=== PATIENT | male | born 1965 | race Caucasian/White ===

== ENCOUNTER 2019-08-20 17:01 | Inpatient (IN) | payer BC, OTHER ==
[~2019-08-20 17:01] MED LIST: PROPOFOL 200 MG/20 ML VIAL ONE; Succinylcholine Chloride 20 MG/ML 10 ml SYRINGE FS ONE
[2019-08-20] MEDS ORDERED: Succinylcholine Chloride 20 MG/ML 10 ml SYRINGE FS ONE (17:10)
[2019-08-20 17:37] LABS: #Lymphocytes 1.1 thou/uL (1.20-3.40); #Monocytes 0.4 thou/uL (0.11-0.59); #Neutrophils 10.1 thou/uL (1.40-6.50); %Basophils 0.4 % (0.0-1.0); %Eosinophils 0.1 % (0.0-10.0); %Lymphocytes 9.9 % (21.0-51.0); %Monocytes 3.1 % (0.0-10.0); %Neutrophils 86.5 % (42.0-75.0); Hemoglobin 16.2 g/dL (14.0-18.0); Mean Corpuscular HGB CONC 32.6 g/dL (32.0-36.0); Mean Corpuscular Hemoglobin 28.7 pg (27.0-31.0); Mean Corpuscular Volume 88.1 fL (78.0-98.0); Mean Platelet Volume 7.8 fL (7.4-10.4); Platelet Count 258 thou/uL (130-400); RBC Distribution Width 12.3 % (11.5-14.5); Red Blood Cell (RBC) Count 5.63 mill/uL (4.70-6.10); White Blood Cell (WBC) Count 11.6 thou/uL (4.8-10.8)
--- NOTE | 2019-08-20 17:56 | RAD ---
Chest one view HISTORY: Dyspnea. COVID-19. COMPARISON: 11/18/2010. FINDINGS: Cardiac silhouette is magnified and enlarged. Pulmonary vasculature is engorged. Prominent, ill-defined patchy areas of parenchymal infiltrate are scattered throughout each lung, pre dominantly at the periphery. Mediastinum is midline. No evidence of pneumothorax. site monitor leads overlie the chest. IMPRESSION : Multifocal infiltrates, consistent with severe bilateral pneumonitis. Cardiomegaly.
[2019-08-20 18:01] LABS: ALT (SGPT) 32 U/L (8-55); AST (SGOT) 43 U/L (5-34); Albumin 3.8 g/dL (3.5-5.0); Alkaline Phosphatase 78 U/L (40-110); Anion Gap 19 mmol/L (10-20); BUN (Urea Nitrogen) 21 mg/dL (8.4-25.7); Bilirubin, Total 1.1 mg/dL (0.2-1.2); Calc. Creatinine Clearance 0 mL/min (70-130); Calcium 9.3 mg/dL (7.8-10.44); Carbon Dioxide 25 mmol/L (22-29); Chloride 92 mmol/L (98-107); Estimated GFR-MDRD 55; Globulin 4.1 g/dL (2.4-3.5); Glucose 116 mg/dL (70-105); Protein, Total 7.9 g/dL (6.0-8.3); Sodium 133 mmol/L (136-145)
[2019-08-20] MEDS ORDERED: Azithromycin 500 MG VIAL ONE ×2 (18:03→18:49)
[2019-08-20] MEDS ORDERED: cefTRIAXone\\ROCEPHIN 2 GM VIAL ONE (18:03)
[2019-08-20] MEDS ORDERED: Potassium Chloride 40 MEQ in Sodium Chloride 0.9% 250 ML 250 ML IVPB SCH (18:30)
--- NOTE | 2019-08-20 18:41 | PDOC.FPRHP ---
- History of Present Illness Chief Complaint: SOB History of Present Illness: Mr Skaggs is a previously healthy 54yo male who presents with SOB. He found out he was COVID positive today, had testing preformed at [facility]. Symptoms started 08/15/19. His mother in law was confirmed COVID-19 positive and recently of complications. His had been exposed prior to positive testing. Febrile at home with Tmax of 101.3. Denies cough, sore throat, diarrhea, chest pain, myalgias. Initially hypoxic at 64% on RA with RR in 40s, HR 120s. SpO2 improved with 6L NC, he is currently 93% on 4L. ED Course: 1L NS, Azithromycin 500mg IV, Hydroxychloroquine 200mg IV, KCl 40mEq IV, Mg 2g. - Allergies/Adverse Reactions Allergies Allergy/AdvReac Type Severity Reaction Status Date / Time No Known Allergies Allergy Unverified 08/20/19 18:18 - History PMHx: Denies PSHx: Appendectomy FHx: Mother in law recently with COVID 19. Social: Denies alcohol, tobacco, drug use. - Review of Systems General: reports: fever/chills ENT: denies: nasal congestion, rhinorrhea Respiratory: reports: shortness of breath. denies: cough, congestion Cardiovascular: denies: chest pain Gastrointestinal: denies: nausea, diarrhea, abdominal pain Genitourinary: denies: dysuria, polyuria Skin: denies: rashes, lesions Musculoskeletal: denies: pain Neurological: denies: weakness - Vital signs BP: 128/92 HR: 113 RR: 44 Tmax: 98.6 Pox: 93% on 4L Wt: 160.8kg - Physical Exam Constitutional: awake, alert and oriented, well developed HEENT: normocephalic and atraumatic, conjunctiva clear, grossly normal hearing, MMM Neck: supple, trachea midline Heart: RRR, no edema, other (tachycardic. No murmurs) Lungs: other (bibasilar crackles L>R Able to speak in 2-3 word sentences. Respiratory distress with speaking, improved when relaxed.) Abdomen: soft, non-tender Musculoskeletal: normal tone Neurological: no focal deficit Skin: good turgor, other (possible tinea on b/l feet) Heme/Lymphatic: no unusual bruising or bleeding Psychiatric: normal mood and affect, good judgment and insight, intact recent and remote memory FMR H&P: Results - Labs Result Diagrams: 08/20/19 17:24 08/20/19 17:24 Lab results: WBC 11.6 thou/uL (4.8-10.8) H 08/20/19 17:24 Hgb 16.2 g/dL (14.0-18.0) 08/20/19 17:24 Hct 49.6 % (42.0-52.0) 08/20/19 17:24 MCV 88.1 fL (78.0-98.0) 08/20/19 17:24 Plt Count 258 thou/uL (130-400) 08/20/19 17:24 Neutrophils % 86.5 % (42.0-75.0) H 08/20/19 17:24 Sodium 133 mmol/L (136-145) L 08/20/19 17:24 Potassium 3.0 mmol/L (3.5-5.1) L 08/20/19 17:24 Chloride 92 mmol/L (98-107) L 08/20/19 17:24 Carbon Dioxide 25 mmol/L (22-29) 08/20/19 17:24 BUN 21 mg/dL (8.4-25.7) 08/20/19 17:24 Creatinine 1.36 mg/dL (0.7-1.3) H 08/20/19 17:24 Glucose 116 mg/dL (70-105) H 08/20/19 17:24 Lactic Acid 3.8 mmol/L (0.5-2.2) H 08/20/19 17:24 Calcium 9.3 mg/dL (7.8-10.44) 08/20/19 17:24 Total Bilirubin 1.1 mg/dL (0.2-1.2) 08/20/19 17:24 AST 43 U/L (5-34) H 08/20/19 17:24 ALT 32 U/L (8-55) 08/20/19 17:24 Alkaline Phosphatase 78 U/L (40-110) 08/20/19 17:24 Serum Total Protein 7.9 g/dL (6.0-8.3) 08/20/19 17:24 Albumin 3.8 g/dL (3.5-5.0) 08/20/19 17:24 - EKG Interpretation EKG: HR 100, Complete RBBB. QTC 497 - Radiology Interpretation Chest x-ray Status: image reviewed by me, report reviewed by me Additional comment: Multifocal infiltrates, consistent with severe bilatral pneumonitis. Cardiomegaly FMR H&P: A/P - Plan Mr Skaggs is a 54yo admitted for acute hypoxic respiratory failure 2/2 COVID- 19. Acute Respiratory Failure 2/2 COVID-19, Day #5 since symptom onset - Confirmed positive test at [facility] - Classic lab abnormalities of leukocytosis, elevated neurophils, decreased leukocytes, elevated AST and Creatinine. - s/p Azithromycin, cont for 5 day course. Will start Hydroxychloroquine 200mg TID. EKG with QTc 497 - 93% on 4L NC, continue continuous SpO2 monitoring. At risk for decompensation. Will watch very closely. - Tylenol for pain and fever. s/p 1g Tylenol & 1L NS in ED - Will check PT/INR, procal and CRP - Admit to ICU, Dr Elliott consulted from ED. - Diet NPO Cardiomegaly on CXR - Ordered BNP, Trop Prolonged QTc - EKG 497 - Ordered repeat EKG Hypokalemia - 40mEq IV given in ED - Check AM BMP OLAMIDE vs CKD - GFR 55, Cr 1.36 - Typically elevated in COVID patients Elevated Lactate - 3.8, will recheck after gentle fluid hydration Transaminitis/leukocytosis - Likely related to Covid Code Status: FULL DVT ppx: Lovenox PCP: Dr Patricio Ceballos. [facility], [facility] FMR H&P: Upper Level - Plan Date/Time: 08/20/19 184 I, [], have evaluated this patient and agree with findings/plan as outlined by recruitment internship resident. Pertinent changes/additions are listed here. Addendum - Attending - Attending Attestation Date/Time: 08/20/192100 I personally evaluated the patient and discussed the management with Dr. Meier. I agree with the History, Examination, Assessment and Plan documented above with any addition or exceptions noted below. Patient in respiratory distress but apparently improved from arrival. Satting in low 90's, desats to upper 70's with extensive talking. History and exam as above. QTc in setting of RBBB. Will repeat ECG.
[2019-08-20] MEDS ORDERED: Magnesium 2 GM/50 ML BAG (IN WATER) ONE (18:47)
[2019-08-20] MEDS ORDERED: Ondansetron PF 4 MG/2 ML Vial IVP PRN (18:48)
[2019-08-20] MEDS ORDERED: Acetaminophen 325 MG Suppository PR PRN (18:48)
[2019-08-20] MEDS ORDERED: Acetaminophen 325 MG/10.15 ML UDCUP PO PRN (18:48)
[2019-08-20] MEDS ORDERED: CCU Electrolyte Replacement 1 EACH IVPB ONE (18:48)
[2019-08-20] MEDS ORDERED: Potassium Chloride 40 MEQ in Premix Bag 1 BAG IVPB PRN (19:01)
[2019-08-20] MEDS ORDERED: Magnesium Oxide 400 MG TAB PO PRN ×2 (19:01)
[2019-08-20] MEDS ORDERED: Potassium Chloride 20 MEQ TAB PO PRN (19:01)
[2019-08-20] MEDS ORDERED: Magnesium 2 GM/50 ML 2 GM in Premix Bag 1 BAG IVPB PRN (19:01)
[2019-08-20] MEDS ORDERED: Potassium Phosphate 12 MMOL in Sodium Chloride 0.9% 250 ML 250 ML IV PRN (19:01)
[2019-08-20] MEDS ORDERED: Potassium Phosphate 15 MMOL in Sodium Chloride 0.9% 250 ML 250 ML IV PRN (19:01)
[2019-08-20] MEDS ORDERED: PHOS-NAK 1 PKT PACK PO PRN ×2 (19:01)
[2019-08-20] MEDS ORDERED: Potassium Chloride 40 MEQ in Sodium Chloride 0.9% 250 ML 250 ML IVPB PRN (19:01)
[2019-08-20] MEDS ORDERED: Potassium Phosphate 9 MMOL in Sodium Chloride 0.9% 100 ML IVPB PRN (19:01)
[2019-08-20] MEDS ORDERED: CCU ELECTROLYTE REPLACEMENT PROTOCOL FS PRN (19:01)
[2019-08-20 19:09] LABS: PTT 28.6 SEC (22.9-36.1); Prothrombin Time 12.8 SEC (12.0-14.7)
[2019-08-20] MEDS ORDERED: Hydroxychloroquine Sulfate 200 MG TAB PO SCH (19:30)
[2019-08-20] MEDS ORDERED: Guaifenesin DM 100-10/5 ML UDCUP PO PRN (20:04)
[2019-08-20 20:27] LABS: Troponin I Less than 0.010 ng/mL (< 0.028)
[2019-08-20 20:36] LABS: Lactic Acid 1.7 mmol/L (0.5-2.2)
[2019-08-20] MEDS: Famotidine/PF 20 mg/2ml Vial SLOW IVP SCH (22:20)
[2019-08-21 04:32] LABS: Phosphorus 2.4 mg/dL (2.3-4.7)
[2019-08-21 04:38] LABS: ALT (SGPT) 24 U/L (8-55); AST (SGOT) 41 U/L (5-34); Albumin 3.3 g/dL (3.5-5.0); Alkaline Phosphatase 64 U/L (40-110); Anion Gap 15 mmol/L (10-20); BUN (Urea Nitrogen) 22 mg/dL (8.4-25.7); Bilirubin, Total 0.8 mg/dL (0.2-1.2); Calc. Creatinine Clearance 175 mL/min (70-130); Calcium 8.6 mg/dL (7.8-10.44); Carbon Dioxide 26 mmol/L (22-29); Chloride 98 mmol/L (98-107); Estimated GFR-MDRD 69; Globulin 3.6 g/dL (2.4-3.5); Glucose 104 mg/dL (70-105); Magnesium 2.4 mg/dL (1.6-2.6); Potassium 3.5 mmol/L (3.5-5.1); Protein, Total 6.9 g/dL (6.0-8.3); Sodium 135 mmol/L (136-145)
[2019-08-21 05:15] LABS: Band 3 % (5-11); Eosinophils 1 % (0-10); Hemoglobin 14.2 g/dL (14.0-18.0); Lymphocytes 13 % (21-51); MDiff Complete? YES; Mean Corpuscular HGB CONC 32.6 g/dL (32.0-36.0); Mean Corpuscular Hemoglobin 29.1 pg (27.0-31.0); Mean Platelet Volume 7.9 fL (7.4-10.4); Monocytes 2 % (0-10); Neutrophil 81 % (42-75); Platelet Count 220 thou/uL (130-400); RBC Distribution Width 12.4 % (11.5-14.5); White Blood Cell (WBC) Count 9.5 thou/uL (4.8-10.8)
--- NOTE | 2019-08-21 06:52 | PDOC.FM ---
- Subjective Subjective: Overnight, patient went from satting 94% on 4L NC and was moved to a non rebreather. On exam, patient sitting up in bed. States that he feels slightly SOB when talking. Denies a cough or phlegm. Denies chest pain or palpitations. - Objective MAR Reviewed: Yes Vital Signs & Weight: Vital Signs (12 hours) Temp Pulse Resp BP Pulse Ox 08/21/19 04:00 98.7 F 08/21/19 03:46 95 08/20/19 21:48 95 08/20/19 21:40 85 L 08/20/19 21:35 99.1 F 96 38 H 111/67 84 L Weight Weight 162.658 kg Most Recent Monitor Data Heart Rate from ECG 102 NIBP 170/103 NIBP BP-Mean 125 Respiration from ECG 35 SpO2 95 I&O: 08/19/19 08/20/19 08/21/19 06:59 06:59 06:59 Intake Total 340 Output Total 750 Balance -410 Result Diagrams: 08/21/19 03:52 08/21/19 03:52 Phys Exam - Physical Examination Constitutional: NAD HEENT: PERRLA, moist MMs, sclera anicteric conjunctivitis b/l Neck: supple, full ROM Respiratory: clear to auscultation bilateral assessory muscle use, increased rate of breathing hermelinda w/ talking Cardiovascular: RRR Gastrointestinal: soft, non-tender, positive bowel sounds Musculoskeletal: no edema Neurological: non-focal, moves all 4 limbs Psychiatric: normal affect, A&O x 3 Skin: no rash, normal turgor, cap refill <2 seconds Dx/Plan (1) COVID-19 virus infection Code(s): U07.1 - COVID-19 Status: Acute (2) Hypokalemia Code(s): E87.6 - HYPOKALEMIA Status: Acute (3) Lactic acidosis Code(s): E87.2 - ACIDOSIS Status: Acute (4) Prolonged Q-T interval on ECG Code(s): R94.31 - ABNORMAL ELECTROCARDIOGRAM [ECG] [EKG] Status: Acute (5) HTN (hypertension) Code(s): I10 - ESSENTIAL (PRIMARY) HYPERTENSION Status: Acute - Plan Plan: Mr Skaggs is a 54yo admitted for acute hypoxic respiratory failure 2/2 COVID- 19. Acute Respiratory Failure 2/2 COVID-19 Day #6 since symptom onset. Confirmed positive test at [facility]. Classic lab abnormalities of leukocytosis, elevated neurophils, decreased leukocytes, elevated AST, elevated CRP, procal, and Creatinine. EKG with QTc 497. - s/p Azithromycin, cont for 5 day course. Will start Hydroxychloroquine 200mg BID. Methypred as well. Will continue to monitor QTc being on these medications. - Now satting 95% on non rebreather, continue continuous SpO2 monitoring. At risk for decompensation. Will watch very closely. If decompensates can consider HFNC and awake proning. - Tylenol for pain and fever, avoid NSAIDs. - Dr Elliott(pulm) consulted from ED, appreciate recs. Cardiomegaly on CXR - BNP and trop negative Prolonged QTc EKG 497 on admission. - Will continue to monitor closely HTN, no previous dx - Will start amlodipine 5mg daily, will continue to monitor Hypokalemia, resolved s/p 40mEq IV in ED - K 3.5 this AM, will replace as needed OLAMIDE, resolved GFR 55, Cr 1.36 on admission. Typically elevated in COVID patients. - BUN/Cr 22/1.12 this AM, will continue to monitor Elevated Lactate, resolved 3.8 on admission, now 1.7 Transaminitis/leukocytosis Likely related to Covid. AST 41 on admission. Code Status: FULL DVT ppx: Lovenox PCP: Dr Patricio Ceballos. [facility], [facility] Case discussed with Dr. Santos Addendum - Attending - Attending Attestation Date/Time: 08/21/19 1792 I personally evaluated the patient and discussed the management with Dr. Ramirez. I agree with the History, Examination, Assessment and Plan documented above with any addition or exceptions noted below. Patient here with hypoxic resp failure and PNA 2/2 COVID19. Continue O2 support as needed. Trend labs, Pulm on board. Azithro and Plaquenil. Further mgmt pending clinical course.
[2019-08-21] MEDS ORDERED: hydrALAZINE 20 MG/ML VIAL SLOW IVP PRN (07:07)
[2019-08-21] MEDS: Enoxaparin Sodium 40 MG/0.4 ML SYRINGE SC SCH (07:26)
[2019-08-21] MEDS: Famotidine/PF 20 mg/2ml Vial SLOW IVP SCH ×2 (07:26→20:37)
[2019-08-21] MEDS ORDERED: Hydroxychloroquine Sulfate 200 MG TAB PO SCH (09:00)
--- NOTE | 2019-08-21 09:27 | CON ---
DATE OF CONSULTATION: HISTORY OF PRESENT ILLNESS: This is a 54-year-old obese gentleman, 6 feet 1 inches, 358 pounds, BMI 47, who apparently has a family history of positive coronovirus. He was tested at [facility]. There were called him yesterday, saying his test was positive. He came to the ER with worsening shortness of breath. Apparently, his [id number] from the same problem. His also has been positive. I spoke to the ER doctor at length last night about treatment plan. PAST SURGICAL HISTORY: Appendix. SOCIAL HISTORY: No alcohol or drug abuse. PAST MEDICAL HISTORY: Hypertension, takes no medication. ALLERGIES: NONE. REVIEW OF SYSTEMS: Unremarkable. PHYSICAL EXAMINATION: VITAL SIGNS: His temperature is 98.7, blood pressure 160/107, respiratory rate 18, pulse 80, and saturations 90% on non-rebreather. CHEST: Minimal crackles. No wheezing. CARDIAC: Normal S1, S2. No gallops. ABDOMEN: No masses. LABORATORY DATA: White count 9000, H and H 14 and 43. Glucose 220. 81 segs, 3 bands. Lytes are normal. Ferritin levels elevated. C-reactive protein is 25. LDH elevated 585. X-ray shows bilateral infiltrates. IMPRESSION: 1. Coronovirus positive, bilateral bronchopneumonia, respiratory failure. 2. Morbid obesity. Zithromax, Plaquenil, steroids, Maxipime on board. We will follow. Consultation note, 70 minutes, 50% direct patient care. Job ID: [id number]
[2019-08-21] MEDS: Hydroxychloroquine Sulfate 200 MG TAB PO SCH ×2 (09:33→20:31)
[2019-08-21] MEDS: Cefepime 1 GM in Sodium Chloride 0.9% 100 ML IVPB SCH ×2 (09:38→20:31)
[2019-08-21] MEDS: methylPREDNISolone Sod Succ 40 MG VIAL IVP SCH (09:39)
[2019-08-21] MEDS: Amlodipine 5 MG TAB PO SCH (09:39)
[2019-08-21] MEDS: Albuterol 200 PUFF (6.7GM INHALER) INH SCH ×2 (11:10→20:28)
[2019-08-21] MEDS ORDERED: PROVENTIL INHALER 6.7 G (200 INHALATIONS) INH SCH (12:00)
--- NOTE | 2019-08-21 14:44 | EKG ---
Test Reason : STAT Blood Pressure : / mmHG Vent. Rate : 098 BPM Atrial Rate : 098 BPM P-R Int : 120 ms QRS Dur : 144 ms QT Int : 380 ms P-R-T Axes : -02 107 -19 degrees QTc Int : 485 ms Normal sinus rhythm Right bundle branch block T wave abnormality, consider lateral ischemia Abnormal ECG Confirmed by PEYTON THOMSON ([id number]) on 08/21/2019 2:44:01 PM Referred By: YAMILKA *r Confirmed By:PEYTON THOMSON
--- NOTE | 2019-08-21 14:48 | EKG ---
Test Reason : Blood Pressure : / mmHG Vent. Rate : 105 BPM Atrial Rate : 105 BPM P-R Int : 122 ms QRS Dur : 140 ms QT Int : 364 ms P-R-T Axes : 002 114 -15 degrees QTc Int : 481 ms Sinus tachycardia Right bundle branch block T wave abnormality, consider lateral ischemia Abnormal ECG Confirmed by PEYTON THOMSON ([id number]) on 08/21/2019 2:48:27 PM Referred By: TAYLER Confirmed By:PEYTON THOMSON
[2019-08-21] MEDS: Acetaminophen 500 MG TAB PO PRN (16:52)
[2019-08-21 17:45] LABS: Hemoglobin A1c 5.6 % (4.0-6.0)
[2019-08-21] MEDS: Azithromycin 500 MG in Sodium Chloride 0.9% 250 ML 250 ML IVPB SCH (20:29)
[2019-08-21] MEDS ORDERED: Azithromycin 500 MG in Sodium Chloride 0.9% 250 ML 250 ML IVPB SCH (21:00)
[2019-08-22] MEDS: Albuterol 200 PUFF (6.7GM INHALER) INH SCH ×4 (00:43→19:01)
[2019-08-22 03:59] LABS: ALT (SGPT) 28 U/L (8-55); AST (SGOT) 41 U/L (5-34); Albumin 3.3 g/dL (3.5-5.0); Alkaline Phosphatase 89 U/L (40-110); Anion Gap 15 mmol/L (10-20); BUN (Urea Nitrogen) 22 mg/dL (8.4-25.7); Bilirubin, Total 0.8 mg/dL (0.2-1.2); Calc. Creatinine Clearance 221 mL/min (70-130); Calcium 8.8 mg/dL (7.8-10.44); Carbon Dioxide 24 mmol/L (22-29); Chloride 100 mmol/L (98-107); Estimated GFR-MDRD 89; Globulin 3.7 g/dL (2.4-3.5); Glucose 126 mg/dL (70-105); Potassium 3.8 mmol/L (3.5-5.1); Sodium 135 mmol/L (136-145)
[2019-08-22 04:18] LABS: Band 9 % (5-11); Hemoglobin 14.2 g/dL (14.0-18.0); Lymphocytes 6 % (21-51); MDiff Complete? YES; Mean Corpuscular HGB CONC 33.3 g/dL (32.0-36.0); Mean Corpuscular Hemoglobin 29.7 pg (27.0-31.0); Mean Corpuscular Volume 89.2 fL (78.0-98.0); Monocytes 2 % (0-10); Neutrophil 83 % (42-75); Platelet Count 248 thou/uL (130-400); RBC Distribution Width 12.6 % (11.5-14.5); White Blood Cell (WBC) Count 11.7 thou/uL (4.8-10.8)
[2019-08-22] MEDS: Acetaminophen 500 MG TAB PO PRN ×3 (05:30→19:15)
--- NOTE | 2019-08-22 06:51 | PDOC.FM ---
- Subjective Subjective: NAEO. Patient sitting up in bed on HFNC. Patient states he feels better today as compared to yesterday. - Objective MAR Reviewed: Yes Vital Signs & Weight: Vital Signs (12 hours) Temp Pulse Ox 08/22/19 05:00 98.8 F 08/22/19 00:55 91 L 08/22/19 00:00 98.7 F 91 L 08/21/19 20:00 98.4 F 92 L Weight Weight 161.7 kg Most Recent Monitor Data Heart Rate from ECG 81 NIBP 129/87 NIBP BP-Mean 101 Respiration from ECG 27 SpO2 92 I&O: 08/20/19 08/21/19 08/22/19 06:59 06:59 06:59 Intake Total 340 2630 Output Total 750 1100 Balance -410 1530 Result Diagrams: 08/22/19 03:24 08/22/19 03:24 Phys Exam - Physical Examination Constitutional: NAD HEENT: moist MMs conjunctiva injected Neck: supple, full ROM Respiratory: clear to auscultation bilateral mild accessory use when having to talk multiple sentences Cardiovascular: RRR Gastrointestinal: soft Neurological: non-focal, moves all 4 limbs Psychiatric: normal affect, A&O x 3 Skin: no rash, normal turgor, cap refill <2 seconds Dx/Plan (1) COVID-19 virus infection Code(s): U07.1 - COVID-19 Status: Acute (2) Hypokalemia Code(s): E87.6 - HYPOKALEMIA Status: Acute (3) Lactic acidosis Code(s): E87.2 - ACIDOSIS Status: Acute (4) Prolonged Q-T interval on ECG Code(s): R94.31 - ABNORMAL ELECTROCARDIOGRAM [ECG] [EKG] Status: Acute (5) HTN (hypertension) Code(s): I10 - ESSENTIAL (PRIMARY) HYPERTENSION Status: Acute - Plan Plan: Mr Skaggs is a 54yo admitted for acute hypoxic respiratory failure 2/2 COVID- 19. Acute Respiratory Failure 2/2 COVID-19 Day #7 since symptom onset. Confirmed positive test at [facility]. Classic lab abnormalities of leukocytosis, elevated neurophils, decreased leukocytes, elevated AST, elevated CRP, procal, elevated ferritin, LDH and Creatinine. EKG with QTc 497. - s/p Azithromycin, cont for 5 day course. Will start Hydroxychloroquine 200mg BID. Methypred as well. Cefepime started 08/20. Will continue to monitor QTc being on these medications. - Ddimer elevated from yesterday - Now satting 93% on HFNC, continue continuous SpO2 monitoring. At risk for decompensation. Will watch very closely. Patient attempting awake proning, but due to central obesity unable to fully prone. - Daily CXRs - Tylenol for pain and fever, avoid NSAIDs. - Dr Elliott (pulm) consulted from ED, appreciate recs. Cardiomegaly on CXR - BNP and trop negative Prolonged QTc EKG 497 on admission. - Will continue to monitor closely; serial EKGs to monitor. HTN, no previous dx - Will start amlodipine 5mg daily, will continue to monitor, improved today Hypokalemia, resolved s/p 40mEq IV in ED - K 3.5 this AM, will replace as needed OLAMIDE, resolved GFR 55, Cr 1.36 on admission. Typically elevated in COVID patients. - BUN/Cr 22/1.12 this AM, will continue to monitor Elevated Lactate, resolved 3.8 on admission, now 1.7 Transaminitis/leukocytosis Likely related to Covid. AST 41 on admission. Code Status: FULL DVT ppx: Lovenox PCP: Dr Patricio Ceballos. [facility], [facility] Case discussed with Dr. Santos Addendum - Attending - Attending Attestation Date/Time: 08/22/19 1015 I personally evaluated the patient and discussed the management with Dr. Ramirez. I agree with the History, Examination, Assessment and Plan documented above with any addition or exceptions noted below. Patient stable. On HFNC with sats in low 90s. Continue abx, Plaquenil, supportive care. Pulm on board.
[2019-08-22] MEDS ORDERED: Potassium Chloride 20 MEQ TAB PO SCH (08:00)
[2019-08-22] MEDS: Amlodipine 5 MG TAB PO SCH (08:15)
[2019-08-22] MEDS: Cefepime 1 GM in Sodium Chloride 0.9% 100 ML IVPB SCH ×2 (08:15→22:18)
[2019-08-22] MEDS: Hydroxychloroquine Sulfate 200 MG TAB PO SCH ×2 (08:16→22:18)
[2019-08-22] MEDS: methylPREDNISolone Sod Succ 40 MG VIAL IVP SCH (08:16)
[2019-08-22] MEDS: Enoxaparin Sodium 40 MG/0.4 ML SYRINGE SC SCH (08:16)
[2019-08-22] MEDS: Famotidine/PF 20 mg/2ml Vial SLOW IVP SCH ×2 (08:16→22:18)
--- NOTE | 2019-08-22 08:41 | RAD ---
RADIOGRAPH CHEST 1 VIEW: Date: 08/22/2019 Time: 0436 hours HISTORY: 54-year-old male in respiratory failure. COMPARISON: 08/20/2019 at 1746 hours. FINDINGS: There has been interval worsening of diffuse alveolar infiltrates now involving all lung mccollum. The left apex is the least involved, but has worsened. There is complete silhouetting of the cardiomedias tinal silhouette by the alveolar infiltrates. No pneumothorax. There is no endotracheal tube. IMPRESSION: Interval worsening of severe consolidations throughout both lungs. This could represent pulmonary ernie eolar edema and/or severe pneumonia. JN [] POS: JIN
--- NOTE | 2019-08-22 09:15 | PRG ---
DATE OF SERVICE: 08/22/2019 SUBJECTIVE: Washington Skaggs is a 54-year-old obese gentleman, BMI of 47. This morning, he said he is feeling still short of breath. OBJECTIVE: VITAL SIGNS: Pulse 80, blood pressure 120/86, respiratory rate 18, and pulse 80. CHEST: Decreased breath sounds. No wheezing. CARDIAC: Normal S1 and S2. No gallops. ABDOMEN: Soft. IMAGING STUDIES: X-ray shows bilateral infiltrates. IMPRESSION: 1. Coronavirus positive. 2. Bilateral pneumonia. 3. Respiratory failure. 4. Morbid obesity. Zithromax, Maxipime, hydroxychloroquine, and steroids on board. Ordering a BNP today to assess his cardiac status. Continue supportive care. PT will follow. Job ID: [id number]
--- NOTE | 2019-08-22 16:14 | EKG ---
Test Reason : Blood Pressure : / mmHG Vent. Rate : 081 BPM Atrial Rate : 081 BPM P-R Int : 140 ms QRS Dur : 144 ms QT Int : 410 ms P-R-T Axes : 024 101 015 degrees QTc Int : 476 ms Normal sinus rhythm Right bundle branch block Abnormal ECG Confirmed by PEYTON THOMSON ([id number]) on 08/22/2019 4:14:00 PM Referred By: DESTINY *r Confirmed By:PEYTON THOMSON
[2019-08-22] MEDS: Azithromycin 500 MG in Sodium Chloride 0.9% 250 ML 250 ML IVPB SCH (22:18)
[2019-08-23] MEDS: Albuterol 200 PUFF (6.7GM INHALER) INH SCH (00:28)
[2019-08-23 02:10] LABS: Actual Bicarbonate (HCO3a) 25.1 mEq/L (22-28); Base Excess (BEa) 2.7 mEq/L (-2.0 to +3.0); CO2 Tension 32.3 mmHg (35.0-45.0); Calcium, Ionized 1.14 mmol/L (1.12-1.30); Carboxyhemoglobin (COHb) 1.2 gm% (0.0-3.0); Hemoglobin (Hb) 15.1 g/dL (14.0-18.0); Potassium - ABG Lab 3.84 mmol/L (3.70-5.30); pH, Arterial 7.51 (7.35-7.45)
[2019-08-23 02:12] LABS: O2 Tension (PaO2) 34.9 mmHg (80.0-100.0)
[2019-08-23 02:13] LABS: ALV-art Gradient 637.725 (0-20); Puncture Site LRA
[2019-08-23] MEDS ORDERED: Propofol 1,000 MG/100 ML VIAL IV ONE (02:30)
[2019-08-23] MEDS ORDERED: Propofol BOLUS 1,000 MG/100 ML VIAL IV PRN ×2 (02:53→03:34)
[2019-08-23] MEDS ORDERED: Fentanyl BOLUS 250 ML IVPB PRN ×2 (02:53→03:34)
[2019-08-23] MEDS ORDERED: DISCONTINUE PREVIOUS NARCOTIC PAIN MEDICATIONS AND BENZODIAZEPINES FS SCH ×2 (02:53→03:34)
[2019-08-23] MEDS ORDERED: Morphine 2 MG/ML SYRINGE SLOW IVP PRN ×2 (02:53→03:34)
[2019-08-23] MEDS: Lorazepam 2 MG/ML VIAL SLOW IVP PRN (02:56)
[2019-08-23] MEDS: fentaNYL Citrate/PF 2,000 MCG in Sodium Chloride 0.9% 60 ML IV SCH ×3 (03:03→22:51)
[2019-08-23 03:26] LABS: Actual Bicarbonate (HCO3a) 23.3 mEq/L (22-28); Base Excess (BEa) -1.9 mEq/L (-2.0 to +3.0); CO2 Tension 41.3 mmHg (35.0-45.0); Calcium, Ionized 1.14 mmol/L (1.12-1.30); Carboxyhemoglobin (COHb) 0.8 gm% (0.0-3.0); Hemoglobin (Hb) 15.3 g/dL (14.0-18.0); Potassium - ABG Lab 3.66 mmol/L (3.70-5.30); pH, Arterial 7.37 (7.35-7.45)
[2019-08-23 03:33] LABS: O2 Tension (PaO2) 51.7 mmHg (80.0-100.0); Puncture Site RRA
[2019-08-23 03:34] LABS: ALV-art Gradient 609.675 (0-20)
[2019-08-23] MEDS ORDERED: fentaNYL Citrate/PF 2,000 MCG in Sodium Chloride 0.9% 60 ML IV SCH (03:34)
[2019-08-23] MEDS ORDERED: Propofol 1,000 MG/100 ML VIAL IV PRN (03:34)
[2019-08-23] MEDS ORDERED: Lorazepam 2 MG/ML VIAL SLOW IVP PRN (03:34)
[2019-08-23] MEDS ORDERED: Vecuronium 10 MG VIAL IV SCH (03:45)
[2019-08-23] MEDS: Sterile Water 10 ML VIAL IVP SCH ×2 (03:48→07:18)
[2019-08-23] MEDS: Propofol 1,000 MG/100 ML VIAL IV PRN ×9 (04:21→21:55)
[2019-08-23] MEDS: Acetaminophen 650 MG/20.3 ML UDCUP PO PRN ×2 (04:24→17:21)
[2019-08-23] MEDS ORDERED: Succinylcholine Chloride 20 MG/ML 10 ml SYRINGE FS SCH (04:30)
[2019-08-23] MEDS ORDERED: PROPOFOL 200 MG/20 ML VIAL IV SCH (04:30)
[2019-08-23 04:41] LABS: ALT (SGPT) 49 U/L (8-55); AST (SGOT) 64 U/L (5-34); Albumin 3.3 g/dL (3.5-5.0); Alkaline Phosphatase 174 U/L (40-110); Anion Gap 17 mmol/L (10-20); BUN (Urea Nitrogen) 27 mg/dL (8.4-25.7); Calc. Creatinine Clearance 190 mL/min (70-130); Calcium 8.7 mg/dL (7.8-10.44); Carbon Dioxide 24 mmol/L (22-29); Chloride 99 mmol/L (98-107); Estimated GFR-MDRD 76; Globulin 3.8 g/dL (2.4-3.5); Glucose 120 mg/dL (70-105); Protein, Total 7.1 g/dL (6.0-8.3); Sodium 136 mmol/L (136-145)
[2019-08-23 05:01] LABS: Band 6 % (5-11); Lymphocytes 4 % (21-51); MDiff Complete? YES; Mean Corpuscular Hemoglobin 29.4 pg (27.0-31.0); Mean Platelet Volume 7.9 fL (7.4-10.4); Monocytes 3 % (0-10); Neutrophil 87 % (42-75); Platelet Count 300 thou/uL (130-400); Platelet Morphology Comment Appears Adequate; RBC Distribution Width 12.6 % (11.5-14.5); RBC Morphology Normal; Red Blood Cell (RBC) Count 4.76 mill/uL (4.70-6.10); White Blood Cell (WBC) Count 15.3 thou/uL (4.8-10.8)
[2019-08-23] MEDS ORDERED: Furosemide 100 MG/10 ML VIAL IVPB SCH (05:15)
[2019-08-23] MEDS ORDERED: Sterile Water 10 ML ONE ×2 (05:15→06:50)
[2019-08-23] MEDS: Vecuronium 10 MG VIAL IVP PRN ×10 (05:17→21:55)
--- NOTE | 2019-08-23 05:19 | PRG ---
DATE OF SERVICE: 08/23/2019 Washington Skaggs took a turn for the worse about 2:30 in the morning. He subsequently was intubated by Anesthesia. Their assistance is appreciated. Chest radiograph showed a dense diffuse infiltrates. His BNP yesterday was not elevated. He does have a decent blood pressure, so we will keep him paralyzed and try diuresing and see if this leads to improvement in his gas exchange. He has positive 1740 mL over the last 2 days. He may require conversion bilevel ventilation depending on how he does this morning. Critical care time 35 min. Job ID: [id number] MTDD
--- NOTE | 2019-08-23 06:16 | PDOC.EVN ---
Event Note - Event Note Event Note: Paged by nursing for SpO2 in low 80's on High flow NC. Attempted repositioning with no improvement. ABG obtained with pO2 32. Discussed case with Dr Almaguer. Anesthesia called for intubation. Anesthesiologist arrived and intubated patient. CXR was immediately preformed confirming placement. Diffuse bilateral infiltrates, worse from prior CXR. Repeat ABG improved. Patient currently on Propofol, Fentanyl and Vecuronium for sedation and paralytic.
[2019-08-23] MEDS ORDERED: Albuterol 200 PUFF (6.7GM INHALER) INH SCH (07:00)
[2019-08-23] MEDS: Albuterol Sulfate 2.5 mg/3 ml Neb NEB SCH ×3 (07:20→18:40)
--- NOTE | 2019-08-23 07:25 | PDOC.FM ---
- Subjective Subjective: Overnight, patient was satting poorly and was intubated. Today, patient's status remains guarded. - Objective MAR Reviewed: Yes Vital Signs & Weight: Vital Signs (12 hours) Temp Pulse Resp BP Pulse Ox 08/23/19 07:20 109 H 24 H 100 08/23/19 06:34 110 H 122/76 99 08/23/19 06:00 24 H 08/23/19 04:00 102.2 F H 08/23/19 03:39 116 H 142/107 H 08/23/19 02:00 100.7 F H 08/23/19 00:32 90 L 08/23/19 00:00 98.0 F 08/22/19 21:00 97.7 F 08/22/19 20:00 90 L Weight Weight 164.3 kg Most Recent Monitor Data Heart Rate from ECG 121 NIBP 132/77 NIBP BP-Mean 95 Respiration from ECG 24 SpO2 99 I&O: 08/22/19 08/23/19 08/24/19 06:59 06:59 06:59 Intake Total 2630 1240 Output Total 1100 1060 Balance 1530 180 Result Diagrams: 08/23/19 03:56 08/23/19 03:56 Phys Exam - Physical Examination Constitutional: NAD HEENT: moist MMs NC/AT Neck: supple Respiratory: clear to auscultation bilateral Cardiovascular: RRR, no significant murmur, no rub Gastrointestinal: soft, no distention, positive bowel sounds large central obesity Musculoskeletal: no edema ventilated, sedated, paralyzed Skin: no rash Dx/Plan (1) COVID-19 virus infection Code(s): U07.1 - COVID-19 Status: Acute (2) Hypokalemia Code(s): E87.6 - HYPOKALEMIA Status: Acute (3) Lactic acidosis Code(s): E87.2 - ACIDOSIS Status: Acute (4) Prolonged Q-T interval on ECG Code(s): R94.31 - ABNORMAL ELECTROCARDIOGRAM [ECG] [EKG] Status: Acute (5) HTN (hypertension) Code(s): I10 - ESSENTIAL (PRIMARY) HYPERTENSION Status: Acute - Plan Plan: Mr Skaggs is a 54yo admitted for acute hypoxic respiratory failure 2/2 COVID- 19. Acute Respiratory Failure 2/2 COVID-19 Day #8 since symptom onset. Confirmed positive test at [facility]. Classic lab abnormalities of leukocytosis, elevated neurophils, decreased leukocytes, elevated AST, elevated CRP, procal, elevated ferritin, LDH and Creatinine. EKG with QTc 497. - s/p Azithromycin, cont for 5 day course. Will start Hydroxychloroquine 200mg BID. Methypred as well. Cefepime started 08/20. Will continue to monitor QTc being on these medications. - On mechanical ventilation: FIO2 100%, SMIV, TV 500, RR 24, Peak pressure 37 - Will try to contact [facility] to see we can get plasma for patient; pharmacy also looking into remdesivir for patient. - Palliative care consulted to help with family support - Daily CXRs, D-dimer, CRPs; D-dimer >20 today, CXR worsened - Tylenol for pain and fever, avoid NSAIDs. - Dr Elliott (pulm) consulted from ED, appreciate recs. Cardiomegaly on CXR - BNP and trop negative Prolonged QTc EKG 497 on admission. - Will continue to monitor closely; serial EKGs to monitor. HTN, no previous dx - Will start amlodipine 5mg daily, will continue to monitor Hypokalemia, resolved s/p 40mEq IV in ED - Will replace as needed OLAMIDE, resolved GFR 55, Cr 1.36 on admission. Typically elevated in COVID patients. - Will continue to monitor Elevated Lactate, resolved 3.8 on admission -> 1.7 Transaminitis/leukocytosis Likely related to Covid. AST 41 on admission. Code Status: FULL DVT ppx: Lovenox 30 mg BID PCP: Dr Patricio Ceballos. [facility], [facility] Case discussed with Dr. Santos Addendum - Attending - Attending Attestation Date/Time: 08/23/19 9180 I personally evaluated the patient and discussed the management with Dr. Ramirez. I agree with the History, Examination, Assessment and Plan documented above with any addition or exceptions noted below. Patient condition has worsened significantly. He was intubated overnight for worsening hypoxemia. His XR shows significant worsening of COVID19 pneumonia. Pulm on board. Plaquenil, abx. DDimer has trended greatly up, due to risk of thrombotic phenomenon seen in COVID disease, will be increasing Lovenox. Will reach out about compassionate use of Remdesevir and also convalescent plasma use. Poor prognosis. Will work on mild diuresis.
--- NOTE | 2019-08-23 07:58 | RAD ---
PORTABLE CHEST: DATE: 08/23/2019. PROVIDED CLINICAL HISTORY: Respiratory distress. FINDINGS: Comparison 08/22/2019. Interval placement of endotracheal tube, the tip of which terminates in the re gion of the thoracic inlet. Worsening of diffuse bilateral airspace disease. Cardiac and mediastina l silhouette is obscured. No evidence for pneumothorax. IMPRESSION: 1. Interval intubation. 2. Worsening of diffuse bilateral airspace disease. POS: JENN
[2019-08-23] MEDS: Amlodipine 5 MG TAB PO SCH (08:44)
[2019-08-23] MEDS: Famotidine/PF 20 mg/2ml Vial SLOW IVP SCH ×2 (08:48→21:54)
[2019-08-23] MEDS: Cefepime 1 GM in Sodium Chloride 0.9% 100 ML IVPB SCH ×2 (08:48→21:54)
[2019-08-23] MEDS: methylPREDNISolone Sod Succ 40 MG VIAL IVP SCH ×3 (08:48→23:11)
[2019-08-23] MEDS: Enoxaparin Sodium 40 MG/0.4 ML SYRINGE SC SCH (08:49)
[2019-08-23] MEDS: Hydroxychloroquine Sulfate 200 MG, Simple Syrup 4 ML, Water For Irrigation 4 ML PER TUBE SCH ×2 (09:24→22:42)
--- NOTE | 2019-08-23 11:52 | PRG ---
DATE OF SERVICE: 08/23/2019 SUBJECTIVE: Washington Skaggs is a 54-year-old obese gentleman, who is intubated last night with progressive respiratory failure, became very hypoxic. His x-ray now shows diffuse haziness bilaterally consistent with diffuse ARDS. His BNP was less than 10. His C-reactive protein is 15, but his oxygenation is extremely poor. He is on with pO2 of only 51, pCO2 of 43.7. OBJECTIVE: CHEST: No wheezing or crackles. CARDIAC: Normal S1, S2. No gallops. ABDOMEN: Massive. LABORATORY DATA: His white count is 15,000, H and H , platelet count is normal. His lytes are normal. IMPRESSION AND PLAN: 1. Respiratory failure. Coronavirus positive serology. 2. Morbid obesity. Continue present treatment. Plaquenil, Zithromax, steroids, Maxipime. We will try and see if we can get the anti-viral medication aboard if possible. Prognosis is grave. TIME SPENT: One-half hour of critical time. Job ID: [id number]
[2019-08-23] MEDS: Bacteriostatic Water 30 ML VIAL FS PRN ×6 (13:17→19:28)
--- NOTE | 2019-08-23 16:14 | PDOC.PALCO ---
Palliative Care Consult - Consult Details Requesting Physician: Dr Ramirez Reason for Consult: assistance with communication prognosis/disease, family support - Pertinent HPI 54 year old male, previously healthy. Known exposure to Covid, onset of symptoms 08/15/2019 with positive result 08/20/2019. His [id number] from complications related to Covid 19. Mr Skaggs had onset of shortness of breath that caused him to present to the emergency room. Evaluation indentified fever, and hypoxia with tachycardia. Admitted for medical management. - Pertinent PMH No significant medical history other than obesity - Social History Smoking Status: Never smoker Smoking: no tobacco exposure Alcohol Use: none Drug Use History: none Living Situation: independent, with partner - Medications MAR Reviewed: Yes - Allergies Allergies/Adverse Reactions: Allergies Allergy/AdvReac Type Severity Reaction Status Date / Time No Known Allergies Allergy Verified 08/20/19 22:12 - Subjective mechanical ventilation, sedation - ROS Non Response: due to endotracheal tube, due to mental status - Objective Vital Signs: Vital Signs - Most Recent Temp Pulse Resp BP Pulse Ox 100.4 F H 100 24 H 110/74 89 L 08/23/19 12:00 08/23/19 14:35 08/23/19 14:00 08/23/19 10:06 08/23/19 12:30 Palliative Performance Scale: 20 - Physical Exam Constitutional: encephalitic, ill appearing Deviation from normal: mechanical ventilation Cardiovascular: RRR Gastrointestinal: incontinent Genitourinary: lafleur catheter Deviation from normal: sedated - Problem List (1) Palliative care encounter Code(s): Z51.5 - ENCOUNTER FOR PALLIATIVE CARE Current Visit: Yes Status: Acute (2) COVID-19 virus infection Code(s): U07.1 - COVID-19 Current Visit: Yes Status: Acute (3) HTN (hypertension) Code(s): I10 - ESSENTIAL (PRIMARY) HYPERTENSION Current Visit: Yes Status: Acute (4) Hypokalemia Code(s): E87.6 - HYPOKALEMIA Current Visit: Yes Status: Acute (5) Lactic acidosis Code(s): E87.2 - ACIDOSIS Current Visit: Yes Status: Acute - Plan/Recommendations Plan: Lengthy conversations with Liss /Mr Galarza partner Ayesha / daughter [phone] Dheeraj / brother [phone] Discussed current status of Mr Skaggs, we discussed "Hope for hte best, plan of rthe worst". Discussed for them to communicate with each other and that if they are asked to make any decisions on behalf of Mr Skaggs to remember they are "His voice" and to make decisions on what his wishes are. Strained relationship between Liss and Ayesha. Therapeutic listening and emotional support. *Liss mother from Covid, another family member is at [facility] on mechanical ventilation secondary to complications from Covid 19. [75] minutes spent on this encounter with >50% of the time in counseling and coordination of care. Thank you for this very appropriate consult.
[2019-08-23] MEDS: Enoxaparin Sodium 30 MG/0.3 ML SYRINGE SC SCH (21:54)
[2019-08-23] MEDS: Azithromycin 500 MG in Sodium Chloride 0.9% 250 ML 250 ML IVPB SCH (21:54)
[2019-08-24] MEDS: Albuterol Sulfate 2.5 mg/3 ml Neb NEB SCH ×4 (00:19→18:31)
[2019-08-24] MEDS: Vecuronium 10 MG VIAL IVP PRN ×8 (00:31→20:04)
[2019-08-24] MEDS: Propofol 1,000 MG/100 ML VIAL IV PRN ×9 (00:31→22:16)
[2019-08-24 04:56] LABS: Band 3 % (5-11); Hemoglobin 12.6 g/dL (14.0-18.0); Lymphocytes 1 % (21-51); MDiff Complete? YES; Mean Corpuscular HGB CONC 31.9 g/dL (32.0-36.0); Mean Corpuscular Hemoglobin 29.2 pg (27.0-31.0); Mean Corpuscular Volume 91.4 fL (78.0-98.0); Mean Platelet Volume 7.9 fL (7.4-10.4); Monocytes 4 % (0-10); Neutrophil 92 % (42-75); Platelet Count 211 thou/uL (130-400); Platelet Morphology Comment Appears Adequate; RBC Distribution Width 12.4 % (11.5-14.5); RBC Morphology Normal; White Blood Cell (WBC) Count 9.7 thou/uL (4.8-10.8)
[2019-08-24 05:08] LABS: ALT (SGPT) 37 U/L (8-55); AST (SGOT) 26 U/L (5-34); Albumin 2.9 g/dL (3.5-5.0); Alkaline Phosphatase 108 U/L (40-110); Anion Gap 17 mmol/L (10-20); BUN (Urea Nitrogen) 35 mg/dL (8.4-25.7); CRP (Inflammatory) 22.92 mg/dL (= or < 0.5); Calc. Creatinine Clearance 106 mL/min (70-130); Calcium 8.4 mg/dL (7.8-10.44); Carbon Dioxide 25 mmol/L (22-29); Chloride 98 mmol/L (98-107); Estimated GFR-MDRD 38; Globulin 3.5 g/dL (2.4-3.5); Glucose 152 mg/dL (70-105); Iron 24 ug/dL (65-175); Iron Binding Capacity, Total 145 mcg/dL (261-462); Potassium 4.6 mmol/L (3.5-5.1); Protein, Total 6.4 g/dL (6.0-8.3); Sodium 135 mmol/L (136-145)
[2019-08-24] MEDS: methylPREDNISolone Sod Succ 40 MG VIAL IVP SCH ×4 (05:30→23:11)
[2019-08-24 06:55] LABS: Actual Bicarbonate (HCO3a) 26.6 mEq/L (22-28); Base Excess (BEa) -0.6 mEq/L (-2.0 to +3.0); CO2 Tension 53.3 mmHg (35.0-45.0); Calcium, Ionized 1.16 mmol/L (1.12-1.30); Carboxyhemoglobin (COHb) 0.9 gm% (0.0-3.0); Hemoglobin (Hb) 16.5 g/dL (14.0-18.0); O2 Tension (PaO2) 69.2 mmHg (80.0-100.0); Potassium - ABG Lab 4.52 mmol/L (3.70-5.30); pH, Arterial 7.32 (7.35-7.45)
[2019-08-24 06:57] LABS: Puncture Site RR
[2019-08-24 06:58] LABS: ALV-art Gradient 185.025 (0-20)
--- NOTE | 2019-08-24 07:09 | PDOC.FM ---
- Subjective Subjective: NAEO. Patient was proned with improvement in ventilatory support. - Objective MAR Reviewed: Yes Vital Signs & Weight: Vital Signs (12 hours) Temp Pulse Resp BP Pulse Ox 08/24/19 06:51 98 24 H 97 08/24/19 06:26 74 102/59 L 97 08/24/19 06:00 24 H 08/24/19 04:00 99.5 F 24 H 08/24/19 02:00 24 H 08/24/19 00:19 84 24 H 97 08/24/19 00:00 99.3 F 24 H 08/23/19 22:00 24 H 08/23/19 20:00 100.2 F H 24 H 98 Weight Admit Weight 164.2 kg Weight 164.3 kg Most Recent Monitor Data Heart Rate from ECG 75 NIBP 102/59 NIBP BP-Mean 73 Respiration from ECG 23 SpO2 97 I&O: 08/23/19 08/24/19 08/25/19 06:59 06:59 06:59 Intake Total 1240 1689 Output Total 1060 1500 Balance 180 189 Result Diagrams: 08/24/19 03:33 08/24/19 03:33 Phys Exam - Physical Examination Constitutional: NAD HEENT: moist MMs Neck: supple Respiratory: clear to auscultation bilateral Cardiovascular: RRR Gastrointestinal: soft ventilated/sedated Skin: no rash Dx/Plan (1) COVID-19 virus infection Code(s): U07.1 - COVID-19 Status: Acute (2) Hypokalemia Code(s): E87.6 - HYPOKALEMIA Status: Acute (3) Lactic acidosis Code(s): E87.2 - ACIDOSIS Status: Acute (4) Prolonged Q-T interval on ECG Code(s): R94.31 - ABNORMAL ELECTROCARDIOGRAM [ECG] [EKG] Status: Acute (5) HTN (hypertension) Code(s): I10 - ESSENTIAL (PRIMARY) HYPERTENSION Status: Acute - Plan Plan: Mr Skaggs is a 54yo admitted for acute hypoxic respiratory failure 2/2 COVID- 19. Acute Respiratory Failure 2/2 COVID-19 Day #9 since symptom onset. Confirmed positive test at [facility]. Classic lab abnormalities of leukocytosis, elevated neurophils, decreased leukocytes, elevated AST, elevated CRP, procal, elevated ferritin, LDH and Creatinine. EKG with QTc 497. - s/p Azithromycin, cont for 5 day course. Will start Hydroxychloroquine 200mg BID. Methypred as well. Cefepime started 08/20. Will continue to monitor QTc being on these medications. - On mechanical ventilation: FIO2 45%, SMIV, TV 500, RR 24, Peak pressure 24. Now in prone position. - Attempting to obtain COVID convalescent plasma as well as remdesivir. - Palliative care consulted to help with family support, prognosis - Daily CXRs, D-dimer, CRPs; D-dimer >20 today, CXR worsened - Tylenol for pain and fever, avoid NSAIDs. - Dr Elliott (pulm) consulted from ED, appreciate recs. Cardiomegaly on CXR - BNP and trop negative Prolonged QTc EKG 497 on admission. - Will continue to monitor closely; serial EKGs to monitor. HTN, no previous dx - Will start amlodipine 5mg daily, will continue to monitor Hypokalemia, resolved s/p 40mEq IV in ED - Will replace as needed OLAMIDE, resolved GFR 55, Cr 1.36 on admission. Typically elevated in COVID patients. - Will continue to monitor Elevated Lactate, resolved 3.8 on admission -> 1.7 Transaminitis/leukocytosis Likely related to Covid. AST 41 on admission. Code Status: FULL DVT ppx: Lovenox 30 mg BID Diet: Tube feeds PCP: Dr Patricio Ceballos. [facility], [facility] Case discussed with Dr. Santos Addendum - Attending - Attending Attestation Date/Time: 08/24/19 1041 I personally evaluated the patient and discussed the management with Dr. Ramirez. I agree with the History, Examination, Assessment and Plan documented above with any addition or exceptions noted below. Patient stable. Improved oxygenation with Proning. Continues on Vent but decreased FiO2. Continue treatment for COVID, Pulm on board. Mild bump in renal function but good UOP, will continue to monitor and may need mild fluid rehydration if UOP decreases. Start tube feeds. Working on convalescent plasma for patient.
[2019-08-24] MEDS: fentaNYL Citrate/PF 2,000 MCG in Sodium Chloride 0.9% 60 ML IV SCH ×2 (07:41→18:59)
[2019-08-24] MEDS: Famotidine/PF 20 mg/2ml Vial SLOW IVP SCH ×2 (07:41→20:04)
[2019-08-24] MEDS: Cefepime 1 GM in Sodium Chloride 0.9% 100 ML IVPB SCH ×2 (07:41→20:03)
[2019-08-24] MEDS: Enoxaparin Sodium 30 MG/0.3 ML SYRINGE SC SCH ×2 (07:43→20:04)
[2019-08-24] MEDS: Amlodipine 5 MG TAB PO SCH (07:44)
[2019-08-24] MEDS: Hydroxychloroquine Sulfate 200 MG, Simple Syrup 4 ML, Water For Irrigation 4 ML PER TUBE SCH ×2 (08:55→20:04)
--- NOTE | 2019-08-24 09:15 | RAD ---
CHEST ONE VIEW: History: Respiratory insufficiency. Comparison: 08-23-2019 FINDINGS: Very extensive abnormal opacity changes throughout the both lungs with evidence for pleural effusions . Endotracheal tube is in satisfactory location. The distal NG tube is poorly demonstrated. IMPRESSION: Extensive abnormal opacity changes throughout both lungs with prominent air bronchograms bilaterally and evidence for pleural effusions. Overall stable from prior study. Continued short term follow up. POS: [facility]
--- NOTE | 2019-08-24 09:42 | PRG ---
DATE OF SERVICE: 08/24/2019 SUBJECTIVE: Mr. Skaggs has been proning since about 4:00 p.m. yesterday. His oxygenation has dramatically improved, but he is requiring continuous paralysis. OBJECTIVE: VITAL SIGNS: Temperature 98.6, pulse , blood pressure 111/69, O2 saturation is 96%, 24-hour intake 1689, output 1500. HEENT: No evidence of necrosis around his lips or nose. LUNGS: Coarse breath sounds. CARDIAC: S1, S2. Distant. EXTREMITIES: No edema. LABORATORY DATA: Sodium 135, potassium 4.6, chloride 98, CO2 of 25, BUN 35, creatinine 1.8, glucose 152. C-reactive protein . White blood cell count 9.7, hematocrit 39.3, and platelet count 211. PH of 7.32, pCO2 of 53, pO2 of 69. A-a gradient has improved to 185 from 609 yesterday. He is currently on SIMV rate 24, tidal volume 500, PEEP 12, pressure support 10, FiO2 45%. His x-ray shows bilateral infiltrates. ASSESSMENT: 1. COVID-19 pneumonia. 2. Acute on chronic respiratory failure, requiring mechanical ventilation. 3. Morbid obesity. 4. Renal dysfunction. PLAN: 1. Anticoagulation has been increased. I agree. 2. He is continued with hydroxychloroquine and azithromycin. He has also started steroids as a rescue dose for ARDS. We will keep him proning at least 24 full hours. Consider turning him tonight and see how he does. Job ID: [id number]
[2019-08-24] MEDS ORDERED: Sterile Water 10 ML ONE ×2 (10:01→11:56)
[2019-08-24] MEDS ORDERED: Tocilizumab 400 MG in Sodium Chloride 0.9% 80 ML IV SCH (10:15)
[2019-08-24] MEDS: Bacteriostatic Water 30 ML VIAL FS PRN (10:43)
[2019-08-24] MEDS: Sterile Water 10 ML VIAL IVP SCH (15:54)
[2019-08-24] MEDS: Azithromycin 500 MG in Sodium Chloride 0.9% 250 ML 250 ML IVPB SCH (20:03)
[2019-08-25] MEDS: Vecuronium 10 MG VIAL IVP PRN ×7 (00:09→23:15)
[2019-08-25] MEDS: Propofol 1,000 MG/100 ML VIAL IV PRN ×9 (00:10→23:15)
[2019-08-25] MEDS: Albuterol Sulfate 2.5 mg/3 ml Neb NEB SCH ×4 (00:26→18:35)
[2019-08-25 04:07] LABS: ALT (SGPT) 36 U/L (8-55); AST (SGOT) 27 U/L (5-34); Albumin 2.8 g/dL (3.5-5.0); Alkaline Phosphatase 91 U/L (40-110); Anion Gap 14 mmol/L (10-20); BUN (Urea Nitrogen) 39 mg/dL (8.4-25.7); Bilirubin, Total 0.7 mg/dL (0.2-1.2); CRP (Inflammatory) 10.94 mg/dL (= or < 0.5); Calc. Creatinine Clearance 148 mL/min (70-130); Calcium 8.3 mg/dL (7.8-10.44); Carbon Dioxide 27 mmol/L (22-29); Chloride 100 mmol/L (98-107); Estimated GFR-MDRD 56; Globulin 3.3 g/dL (2.4-3.5); Glucose 171 mg/dL (70-105); Potassium 4.5 mmol/L (3.5-5.1); Protein, Total 6.1 g/dL (6.0-8.3); Sodium 136 mmol/L (136-145)
[2019-08-25 04:08] LABS: Band 4 % (5-11); Hemoglobin 12.1 g/dL (14.0-18.0); Hypochromia SLIGHT = 6-15 cells (100X) (0-5/hpf); Lymphocytes 3 % (21-51); MDiff Complete? YES; Mean Corpuscular HGB CONC 33.5 g/dL (32.0-36.0); Mean Corpuscular Hemoglobin 30.5 pg (27.0-31.0); Mean Platelet Volume 8.1 fL (7.4-10.4); Monocytes 7 % (0-10); Neutrophil 86 % (42-75); Platelet Count 240 thou/uL (130-400); Platelet Morphology Comment Appears Adequate; RBC Distribution Width 12.4 % (11.5-14.5); Red Blood Cell (RBC) Count 3.97 mill/uL (4.70-6.10); White Blood Cell (WBC) Count 9.7 thou/uL (4.8-10.8)
[2019-08-25] MEDS: methylPREDNISolone Sod Succ 40 MG VIAL IVP SCH ×4 (05:08→22:54)
[2019-08-25 07:18] LABS: Actual Bicarbonate (HCO3a) 29.5 mEq/L (22-28); Base Excess (BEa) 2.6 mEq/L (-2.0 to +3.0); Calcium, Ionized 1.19 mmol/L (1.12-1.30); Carboxyhemoglobin (COHb) 1.1 gm% (0.0-3.0); Hemoglobin (Hb) 12.5 g/dL (14.0-18.0); Potassium - ABG Lab 4.64 mmol/L (3.70-5.30); pH, Arterial 7.34 (7.35-7.45)
[2019-08-25 07:20] LABS: O2 Tension (PaO2) 51.1 mmHg (80.0-100.0); Puncture Site RR
--- NOTE | 2019-08-25 07:21 | PDOC.FM ---
- Subjective Subjective: NAEO. Patient ventilated, sedated, in the prone position. No concerns per nursing. - Objective MAR Reviewed: Yes Vital Signs & Weight: Vital Signs (12 hours) Temp Pulse Resp Pulse Ox 08/25/19 06:00 24 H 08/25/19 04:00 24 H 08/25/19 03:00 98.7 F 08/25/19 02:00 24 H 08/25/19 00:26 72 24 H 94 L 08/25/19 00:00 24 H 08/24/19 23:00 98.4 F 08/24/19 22:00 24 H 08/24/19 20:00 24 H 08/24/19 19:19 95 Weight Admit Weight 164.2 kg Weight 166.5 kg Most Recent Monitor Data Heart Rate from ECG 62 NIBP 109/64 NIBP BP-Mean 79 Respiration from ECG 24 SpO2 93 I&O: 08/24/19 08/25/19 08/26/19 06:59 06:59 06:59 Intake Total 1689 1290 Output Total 1500 2335 Balance 189 -1045 Result Diagrams: 08/25/19 03:07 08/25/19 03:07 Phys Exam - Physical Examination Constitutional: NAD HEENT: moist MMs Neck: supple Respiratory: clear to auscultation bilateral Cardiovascular: RRR Gastrointestinal: soft Neurological: non-focal Deviation from normal: sedated, paralyzed on the vent Skin: no rash, normal turgor, cap refill <2 seconds Dx/Plan (1) COVID-19 virus infection Code(s): U07.1 - COVID-19 Status: Acute (2) Hypokalemia Code(s): E87.6 - HYPOKALEMIA Status: Acute (3) Lactic acidosis Code(s): E87.2 - ACIDOSIS Status: Acute (4) Prolonged Q-T interval on ECG Code(s): R94.31 - ABNORMAL ELECTROCARDIOGRAM [ECG] [EKG] Status: Acute (5) HTN (hypertension) Code(s): I10 - ESSENTIAL (PRIMARY) HYPERTENSION Status: Acute - Plan Plan: Acute Respiratory Failure 2/2 COVID-19 Day #10 since symptom onset. Confirmed positive test at [facility]. Classic lab abnormalities of leukocytosis, elevated neurophils, decreased leukocytes, elevated AST, elevated CRP, procal, elevated ferritin, LDH and Creatinine. EKG with QTc 497. - Continue Azithromycin (last dose 08/25), Hydroxychloroquine 200mg BID, Methypred, and Cefepime. Tocilizumab given 08/23. - Will continue to monitor QTc being on these medications on tele. - On mechanical ventilation: FIO2 50%, SIMV, TV 500, RR 24, Peak pressure 33. Prone position. - Attempting to obtain COVID convalescent plasma, possibly will have Mon/, consent obtained from family - Daily CXRs, D-dimer, CRPs; D-dimer >20 today, CXR worsened - Continue to monitor urine output closely - Tylenol for pain and fever, avoid NSAIDs. - Pulm Pavel) consulted from ED, appreciate recs. - Palliative care consulted to help with family support, prognosis Cardiomegaly on CXR - BNP and trop negative Prolonged QTc EKG 497 on admission. - Will continue to monitor closely; serial EKGs to monitor. HTN, no previous dx - Will start amlodipine 5mg daily, will continue to monitor Hypokalemia, resolved s/p 40mEq IV in ED - Will replace as needed OLAMIDE, improved GFR 55, Cr 1.36 on admission. Typically elevated in COVID patients. - Will continue to monitor Elevated Lactate, resolved 3.8 on admission -> 1.7 Transaminitis/leukocytosis Likely related to Covid. AST 41 on admission. Code Status: FULL DVT ppx: Lovenox 30 mg BID Diet: Tube feeds PCP: Dr Patricio Ceballos. [facility], [facility] Case discussed with Dr. Santos Addendum - Attending - Attending Attestation Date/Time: 08/25/19 1019 I personally evaluated the patient and discussed the management with Dr. Ramirez. I agree with the History, Examination, Assessment and Plan documented above with any addition or exceptions noted below. Patient has been returned to the prone position. He is oxygenating better in that position. XR continues to show advanced pneumonia from COVID. He is s/p tolicizumab, on Plaquenil and Azithro. Working to get convalescent plasma. Inflammatory markers actually with some improvement today. Renal function improved and UOP adequate. On BID Lovenox for hypercoagulability.
[2019-08-25] MEDS: fentaNYL Citrate/PF 2,000 MCG in Sodium Chloride 0.9% 60 ML IV SCH ×2 (07:33→18:44)
[2019-08-25] MEDS ORDERED: Vecuronium 10 MG VIAL ONE (07:48)
[2019-08-25] MEDS ORDERED: Enoxaparin Sodium 30 MG/0.3 ML SYRINGE SC SCH (08:16)
[2019-08-25] MEDS: Enoxaparin Sodium 40 MG/0.4 ML SYRINGE SC SCH ×2 (09:04→19:51)
[2019-08-25] MEDS: Cefepime 1 GM in Sodium Chloride 0.9% 100 ML IVPB SCH ×2 (09:06→19:49)
[2019-08-25] MEDS: Famotidine/PF 20 mg/2ml Vial SLOW IVP SCH ×2 (09:14→19:50)
[2019-08-25] MEDS: Amlodipine 5 MG TAB PO SCH (09:15)
--- NOTE | 2019-08-25 09:39 | PRG ---
DATE OF SERVICE: 08/25/2019 This is a 35 minutes critical care time. SUBJECTIVE: Mr. Skaggs did great during the day yesterday. He was put back in supine and stayed in that position last night. Therefore, he was more hypoxic this morning. OBJECTIVE: VITAL SIGNS: Currently on physical exam, his temperature is 98.7, his maximum temperature I see over the last 24 hours was 99.5, pulse is 62, blood pressure 109/64. A 24-hour intake 1290 and output 2335. His weight is 367 pounds. HEENT: Unremarkable. NECK: No JVD. LUNGS: Coarse breath sounds. CARDIOVASCULAR: S1 and S2. Regular. ABDOMEN: Obese, soft, and nontender. EXTREMITIES: Edematous. LABORATORY DATA: ABG; pH of 7.34, pCO2 of 56, pO2 of 51 on SIMV rate 24, tidal volume 500, PEEP 12, pressure support 15, and FiO2 of 60%. White blood cell count 9.7, hematocrit 36.1, and platelet count 240. His D-dimer is 7.6, down from greater than 20 yesterday. Sodium 136, potassium 4.5, chloride 100, CO2 of 27, BUN 39, creatinine 1.3, and glucose 171. Ferritin 1032. C-reactive protein is down to 10.9. Chest x-ray had not been done at the time of my dictation. ASSESSMENT: 1. COVID-19 pneumonia. 2. Acute respiratory failure requiring mechanical ventilation. 3. Status post tocilizumab infusion yesterday. 4. Renal dysfunction. PLAN: 1. We will place the patient back in prone position today and leave in their on 24 on and 2-hour off schedule. 2. Continue intermittent paralysis. 3. Anticoagulation was increased yesterday. If D-dimer trends upward, may need to increase further tomorrow. 4. I will go ahead and cut the steroid dose in half. 5. Continue enteral tube feeds. 6. Prognosis remains extremely guarded at this point. Job ID: [id number]
[2019-08-25] MEDS: Hydroxychloroquine Sulfate 200 MG, Simple Syrup 4 ML, Water For Irrigation 4 ML PER TUBE SCH ×2 (09:50→20:13)
--- NOTE | 2019-08-25 15:29 | PDOC.EVN ---
Event Note - Event Note Event Note: TRANSITION OF CARE NOTE: This is a 54yo M with PMH of morbid obesity who presented to the ER on 08/20/19 with known COVID positive and worsening SOB> He was infected after his mother-in -law contracted the virus while hospitalized at another hospital and went home on hospice. The patient's began with symptoms starting 08/15/19. He was admitted to the ICU and was initially doing well on HFNC. He decompensated on day 3 of admission and required intubation. He remains mechanically ventilated. He has been getting intermittent proning. He is receiving azithromycin (5 day course), cefepime, methylprednisone, and hydroxychloroqine for treatment of COVID-19. On 08/23 he received 2 doses of tocilizumab. He does have a prolonged QTc that is being monitored daily. He is getting daily labs and CXRs with worsening in his D -dimer, although today was lower. CXR continues to show infiltrates and effusions. The plan moving forward is to continue to support on the ventilator. Daily labs and CXRs. He will continue to get intermittent proning which has seemed to improve his sats. His lovenox is being dosed BID but could consider th lovenox. Continue the current medications listed above with the hopeful addition of plasma through the [facility] [place] on 08/25 - consent has been obtained from family. Pulmonology continues to follow closely, appreciate recommendations and help. Palliative care has also been consulted to help with family support and appreciate their help with this. Prognosis remains guarded. Family contact has been patient's partner Liss - [phone]. Please feel free to contact me with any questions. It has been a pleasure taking care of this patient. Patient being transitioned to care with Dr. Napoles with the residents.
[2019-08-25] MEDS: Azithromycin 500 MG in Sodium Chloride 0.9% 250 ML 250 ML IVPB SCH (20:14)
[2019-08-25] MEDS: Bacteriostatic Water 30 ML VIAL FS PRN ×3 (20:17→23:15)
[2019-08-26] MEDS: Albuterol Sulfate 2.5 mg/3 ml Neb NEB SCH ×4 (00:14→18:08)
[2019-08-26] MEDS: Propofol 1,000 MG/100 ML VIAL IV PRN ×8 (01:46→23:56)
[2019-08-26] MEDS: Vecuronium 10 MG VIAL IVP PRN ×8 (03:27→23:50)
[2019-08-26] MEDS: Bacteriostatic Water 30 ML VIAL FS PRN ×5 (03:27→23:50)
[2019-08-26 04:22] LABS: Band 6 % (5-11); Hemoglobin 13.1 g/dL (14.0-18.0); Lymphocytes 5 % (21-51); MDiff Complete? YES; Mean Corpuscular HGB CONC 33.3 g/dL (32.0-36.0); Mean Platelet Volume 7.8 fL (7.4-10.4); Monocytes 2 % (0-10); Neutrophil 87 % (42-75); Platelet Count 311 thou/uL (130-400); Platelet Morphology Comment Appears Adequate; RBC Distribution Width 12.4 % (11.5-14.5); Red Blood Cell (RBC) Count 4.37 mill/uL (4.70-6.10); White Blood Cell (WBC) Count 11.7 thou/uL (4.8-10.8)
[2019-08-26 04:29] LABS: ALT (SGPT) 66 U/L (8-55); AST (SGOT) 52 U/L (5-34); Albumin 2.9 g/dL (3.5-5.0); Alkaline Phosphatase 89 U/L (40-110); Anion Gap 15 mmol/L (10-20); BUN (Urea Nitrogen) 47 mg/dL (8.4-25.7); Bilirubin, Total 0.9 mg/dL (0.2-1.2); CRP (Inflammatory) 4.55 mg/dL (= or < 0.5); Calc. Creatinine Clearance 197 mL/min (70-130); Calcium 8.4 mg/dL (7.8-10.44); Carbon Dioxide 24 mmol/L (22-29); Chloride 102 mmol/L (98-107); Estimated GFR-MDRD 76; Globulin 3.4 g/dL (2.4-3.5); Glucose 149 mg/dL (70-105); Potassium 4.8 mmol/L (3.5-5.1); Protein, Total 6.3 g/dL (6.0-8.3); Sodium 136 mmol/L (136-145)
[2019-08-26] MEDS: methylPREDNISolone Sod Succ 40 MG VIAL IVP SCH ×4 (04:53→23:50)
[2019-08-26] MEDS: fentaNYL Citrate/PF 2,000 MCG in Sodium Chloride 0.9% 60 ML IV SCH ×2 (05:56→16:34)
--- NOTE | 2019-08-26 06:50 | PDOC.FM ---
- Subjective Subjective: Currently prone position. Nursing reports DAGMARO. - Objective MAR Reviewed: Yes Vital Signs & Weight: Vital Signs (12 hours) Temp Pulse Resp Pulse Ox 08/26/19 06:00 24 H 08/26/19 04:00 97.7 F 24 H 08/26/19 02:00 24 H 08/26/19 00:14 68 24 H 100 08/26/19 00:00 98.8 F 24 H 08/25/19 22:00 24 H 08/25/19 20:00 98.6 F 24 H 98 Weight Admit Weight 164.2 kg Weight 167 kg Most Recent Monitor Data Heart Rate from ECG 60 NIBP 130/80 NIBP BP-Mean 96 Respiration from ECG 24 SpO2 97 I&O: 08/24/19 08/25/19 08/26/19 06:59 06:59 06:59 Intake Total 1689 1290 2375 Output Total 1500 2335 2400 Balance 189 -1045 -25 Result Diagrams: 08/26/19 03:47 08/26/19 03:46 Phys Exam - Physical Examination Constitutional: NAD Intubated, sedated HEENT: moist MMs Neck: no JVD Diffuse air movement Cardiovascular: RRR, no significant murmur Pt prone Musculoskeletal: no edema, pulses present Cannot assess due to prone position and sedation. Skin: no rash, cap refill <2 seconds Dx/Plan (1) COVID-19 virus infection Code(s): U07.1 - COVID-19 Status: Acute (2) HTN (hypertension) Code(s): I10 - ESSENTIAL (PRIMARY) HYPERTENSION Status: Acute (3) Hypokalemia Code(s): E87.6 - HYPOKALEMIA Status: Acute (4) Lactic acidosis Code(s): E87.2 - ACIDOSIS Status: Acute (5) Prolonged Q-T interval on ECG Code(s): R94.31 - ABNORMAL ELECTROCARDIOGRAM [ECG] [EKG] Status: Acute - Plan Plan: This is a 54 yo male with a pmh of HTN who is currently being treated for acute hypoxic respiratory failure 2/ COVID-19 Code: FULL Prophylaxis: Pepcid, Lovenox 40mg BID Family: None at bedside per protocol Fluids: SL Diet: Tube feedings Lines/Tubes: ET/OT, 2 peripheral IVs, lafleur catheter Drips: Propofol and fentanyl I&Os: Pt is up 4.3 kg and up 0.4L since admission Vent settings:SIMV 24 breaths per minute, TV 500, PS 15, Fio2 50%, Peep 12 Disposition: DC in 4-5 days, pending clinical improvement PCP: Dr. Ceballos ([facility]) Plan: This patient is currently receiving treatment for COVID-19. He is on Azithromycin which will be discontinued today, cefepime, hydroxychoroquine, he has received Tocilizumab on 08/23. He is currently mechanically ventilated. Continue trending inflammatory markers. Plans to receive convalescent plasma today. Acute hypoxic respiratory failure 2/2 COVID-19 -Continued ventilator support -Day 11 of symptoms, positive COVID-19 test at [facility], Intubated on 08/22 -Continue trending inflammatory markers, all but ferritin have been trending down -QTc is stable -CXR shows diffuse opacities with no apparent improvement -Continue cefepime, plans to stop Azithromycin today -Continue Hydroxychloroquine, Methylprednisolone -Pulmonology consulted -Palliative care consulted Cardiomegaly on CXR -Trops/BNP negative -Strict I&Os Prolonged QTc -Improving, will not hold any necessary meds at this time Hypokalemia, resolved OLAMIDE, improving Elevated lactate, resolved Tranaminitis/Leukocytosis -Minimal changes, likely 2/2 disease process Addendum - Attending - Attending Attestation Date/Time: 08/26/19 5216 I personally evaluated the patient and discussed the management with Dr. Napoles I agree with the History, Examination, Assessment and Plan documented above with any addition or exceptions noted below. Continue supportive care. Completes abx today. Intubation day 4. Attempting to obtain convalescent plasma.
[2019-08-26 07:31] LABS: Actual Bicarbonate (HCO3a) 28.3 mEq/L (22-28); Base Excess (BEa) 2.1 mEq/L (-2.0 to +3.0); Calcium, Ionized 1.19 mmol/L (1.12-1.30); Carboxyhemoglobin (COHb) 0.7 gm% (0.0-3.0); O2 Tension (PaO2) 67.4 mmHg (80.0-100.0); Potassium - ABG Lab 4.68 mmol/L (3.70-5.30); pH, Arterial 7.37 (7.35-7.45)
--- NOTE | 2019-08-26 07:52 | RAD ---
SINGLE VIEW OF THE CHEST: COMPARISON: 08/24/2019. HISTORY: Pneumonia. COVID assessment. FINDINGS: A single view of the chest shows a normal-size cardiomediastinal silhouette. There is near-complete opacification of both lungs. This is stable compared to the prior exam. The endotracheal tube and NG Tube are unchanged in position. IMPRESSION: Stable exam. POS: [facility]
[2019-08-26] MEDS: Cefepime 1 GM in Sodium Chloride 0.9% 100 ML IVPB SCH ×2 (07:53→20:28)
[2019-08-26] MEDS: Enoxaparin Sodium 40 MG/0.4 ML SYRINGE SC SCH ×2 (07:53→20:28)
[2019-08-26] MEDS: Famotidine/PF 20 mg/2ml Vial SLOW IVP SCH ×2 (07:54→20:28)
[2019-08-26] MEDS: Amlodipine 5 MG TAB PO SCH (07:54)
--- NOTE | 2019-08-26 09:18 | PRG ---
DATE OF SERVICE: 08/26/2019 SUBJECTIVE: Remains in the ICU, intubated on the vent. X-ray shows rather extensive diffuse haziness. I do not see any normal lungs unfortunately. OBJECTIVE: VITAL SIGNS: Temperature 97, pulse 83, respirations 24, blood pressure 126/97. CHEST: Decreased breath sounds. No wheezing. CARDIAC: Sinus tach. ABDOMEN: No mass. EXTREMITIES: No edema. LABORATORY DATA: White count 11,000, H and H of 13 and 39, platelet count is normal. PO2 of 67, pCO2 of 53.7, rate 24, 50%, pressure support 15, PEEP of 12. BUN is slightly elevated 47. C-reactive protein is 45. ASSESSMENT: 1. Coronavirus positive bronchopneumonia with severe acute respiratory distress syndrome. 2. Morbid obesity. PLAN: He is on Zithromax, Plaquenil for 5 days. He received steroids, broad-spectrum antibiotics, being paralyzed. Additionally, he was given a dose of medication tocilizumab infusion 4 mg x1. Continue nutrition. Supportive care. Prognosis is guarded. One-half hour of critical time. Job ID: [id number]
[2019-08-26] MEDS: Hydroxychloroquine Sulfate 200 MG, Simple Syrup 4 ML, Water For Irrigation 4 ML PER TUBE SCH ×2 (10:41→20:30)
[2019-08-26] MEDS: Azithromycin 500 MG in Sodium Chloride 0.9% 250 ML 250 ML IVPB SCH (20:28)
[2019-08-27] MEDS: Albuterol Sulfate 2.5 mg/3 ml Neb NEB SCH ×4 (00:15→18:31)
[2019-08-27] MEDS: Vecuronium 10 MG VIAL IVP PRN ×6 (02:23→18:26)
[2019-08-27] MEDS: Propofol 1,000 MG/100 ML VIAL IV PRN ×9 (02:39→23:48)
[2019-08-27] MEDS: fentaNYL Citrate/PF 2,000 MCG in Sodium Chloride 0.9% 60 ML IV SCH ×2 (03:13→15:56)
[2019-08-27 04:34] LABS: ALT (SGPT) 162 U/L (8-55); AST (SGOT) 113 U/L (5-34); Alkaline Phosphatase 97 U/L (40-110); Anion Gap 16 mmol/L (10-20); BUN (Urea Nitrogen) 56 mg/dL (8.4-25.7); Bilirubin, Total 1.2 mg/dL (0.2-1.2); CRP (Inflammatory) 2.14 mg/dL (= or < 0.5); Calc. Creatinine Clearance 158 mL/min (70-130); Calcium 8.5 mg/dL (7.8-10.44); Carbon Dioxide 22 mmol/L (22-29); Chloride 102 mmol/L (98-107); Estimated GFR-MDRD 59; Globulin 3.4 g/dL (2.4-3.5); Glucose 131 mg/dL (70-105); Potassium 5.1 mmol/L (3.5-5.1); Protein, Total 6.4 g/dL (6.0-8.3); Sodium 135 mmol/L (136-145)
[2019-08-27] MEDS: methylPREDNISolone Sod Succ 40 MG VIAL IVP SCH ×3 (05:17→20:53)
[2019-08-27] MEDS: Bacteriostatic Water 30 ML VIAL FS PRN (05:17)
--- NOTE | 2019-08-27 06:25 | PDOC.FM ---
- Subjective Subjective: Nursing report pt did well overnight. Continuing proning - Objective MAR Reviewed: Yes Vital Signs & Weight: Vital Signs (12 hours) Temp Pulse Resp Pulse Ox 08/27/19 06:00 24 H 08/27/19 04:00 98.8 F 24 H 08/27/19 03:01 82 08/27/19 02:00 24 H 08/27/19 00:15 87 08/27/19 00:00 98.4 F 24 H 08/26/19 22:00 24 H 08/26/19 21:58 81 08/26/19 20:00 98.7 F 24 H 98 08/26/19 18:29 83 Weight Admit Weight 164.2 kg Weight 164 kg Most Recent Monitor Data Heart Rate from ECG 79 NIBP 140/91 NIBP BP-Mean 107 Respiration from ECG 27 SpO2 100 I&O: 08/25/19 08/26/19 08/27/19 06:59 06:59 06:59 Intake Total 1290 2375 2277 Output Total 2335 2400 1800 Balance -1045 -25 7 Result Diagrams: 08/27/19 06:21 08/27/19 03:52 Phys Exam - Physical Examination Intubated and sedated Coarse breath sounds throughout Cardiovascular: RRR, no significant murmur Gastrointestinal: no distention, positive bowel sounds Skin: cap refill <2 seconds Deviation from normal: bullae below right chest Dx/Plan (1) COVID-19 virus infection Code(s): U07.1 - COVID-19 Status: Acute (2) HTN (hypertension) Code(s): I10 - ESSENTIAL (PRIMARY) HYPERTENSION Status: Acute (3) Hypokalemia Code(s): E87.6 - HYPOKALEMIA Status: Acute (4) Lactic acidosis Code(s): E87.2 - ACIDOSIS Status: Acute (5) Prolonged Q-T interval on ECG Code(s): R94.31 - ABNORMAL ELECTROCARDIOGRAM [ECG] [EKG] Status: Acute - Plan Plan: This is a 54 yo male with a pmh of HTN who is currently being treated for acute hypoxic respiratory failure 2/ COVID-19 Code: FULL Prophylaxis: Pepcid, Lovenox 40mg BID Family: None at bedside per protocol Fluids: SL Diet: Tube feedings Lines/Tubes: ET/OT, 2 peripheral IVs, lafleur catheter Drips: Propofol and fentanyl I&Os: 452 balance in the last 24 hr Vent settings: SIMV 24, TV 500, PS 15, FIO2 50, PEEP 10, peak 34, inspiratory pause 26 Disposition: DC in 4-5 days, pending clinical improvement PCP: Dr. Ceballos ([facility]) Plan: This patient is currently receiving treatment for COVID-19. He is on Azithromycin which will be discontinued today, cefepime, hydroxychoroquine, he has received Tocilizumab on 08/23. He is currently mechanically ventilated. Continue trending inflammatory markers. Plans to receive convalescent plasma today. Acute hypoxic respiratory failure 2/2 COVID-19 -Continued ventilator support -Day 12 of symptoms, positive COVID-19 test at [facility], Intubated on 08/22 -Continue trending inflammatory markers, all but ferritin have been trending down -QTc is stable -CXR shows diffuse opacities with no apparent improvement -Continue cefepime, plans to stop Azithromycin today -Continue Hydroxychloroquine, Methylprednisolone -Pulmonology consulted -Palliative care consulted Cardiomegaly on CXR -Trops/BNP negative -Strict I&Os Prolonged QTc -Improving, will not hold any necessary meds at this time Hypokalemia, resolved OLAMIDE, improving Elevated lactate, resolved Tranaminitis/Leukocytosis -Minimal changes, likely 2/2 disease process Addendum - Attending - Attending Attestation Date/Time: 08/27/19 1329 I personally evaluated the patient and discussed the management with Dr. Napoles I agree with the History, Examination, Assessment and Plan documented above with any addition or exceptions noted below. ABG improving. Continue supportive care. still several days away before considering breathing trial.
[2019-08-27 06:47] LABS: Band 5 % (5-11); Lymphocytes 19 % (21-51); MDiff Complete? YES; Mean Corpuscular HGB CONC 32.7 g/dL (32.0-36.0); Mean Corpuscular Hemoglobin 29.4 pg (27.0-31.0); Mean Corpuscular Volume 90.1 fL (78.0-98.0); Mean Platelet Volume 7.5 fL (7.4-10.4); Monocytes 1 % (0-10); Neutrophil 75 % (42-75); Platelet Count 339 thou/uL (130-400); Platelet Morphology Comment Appears Adequate; RBC Distribution Width 12.7 % (11.5-14.5); RBC Morphology Normal; Red Blood Cell (RBC) Count 4.75 mill/uL (4.70-6.10)
[2019-08-27 07:42] LABS: Actual Bicarbonate (HCO3a) 27.5 mEq/L (22-28); CO2 Tension 50.8 mmHg (35.0-45.0); Carboxyhemoglobin (COHb) 0.9 gm% (0.0-3.0); Hemoglobin (Hb) 14.2 g/dL (14.0-18.0); O2 Tension (PaO2) 83.1 mmHg (80.0-100.0); Puncture Site LRA; pH, Arterial 7.35 (7.35-7.45)
[2019-08-27] MEDS: Cefepime 1 GM in Sodium Chloride 0.9% 100 ML IVPB SCH (08:07)
[2019-08-27] MEDS: Amlodipine 5 MG TAB PO SCH (08:08)
[2019-08-27] MEDS: Famotidine/PF 20 mg/2ml Vial SLOW IVP SCH ×2 (08:08→20:53)
[2019-08-27] MEDS: Enoxaparin Sodium 40 MG/0.4 ML SYRINGE SC SCH ×2 (08:08→20:53)
[2019-08-27] MEDS: Hydroxychloroquine Sulfate 200 MG, Simple Syrup 4 ML, Water For Irrigation 4 ML PER TUBE SCH (08:09)
[2019-08-27] MEDS: Lorazepam 2 MG/ML VIAL SLOW IVP PRN (08:26)
[2019-08-27] MEDS ORDERED: Bacteriostatic Water 30 ML VIAL FS PRN (08:37)
[2019-08-27] MEDS ORDERED: methylPREDNISolone Sod Succ 40 MG VIAL IVP SCH (09:00)
--- NOTE | 2019-08-27 09:18 | RAD ---
CHEST 1 VIEW: HISTORY: Followup pneumonia. COMPARISON: 08/26/2019. FINDINGS: Life support tubes are in place. Bilateral pleural effusions and extensive vascular congestion and i nterstitial and alveolar edema and/or confluent pneumonia. IMPRESSION: Overall stable chest with extensive interstitial and alveolar opacity changes throughout both lungs a nd pleural effusions. POS: RRE
--- NOTE | 2019-08-27 09:24 | PRG ---
DATE OF SERVICE: SUBJECTIVE: A 54-year-old morbidly obese gentleman. This morning, his x-ray shows diffuse haziness, not much improvement. OBJECTIVE: VITAL SIGNS: Pulse 78, blood pressure 140/100, respirations set at 24, 50%, 10 of PEEP. I's and O's consistently positive. GENERAL: Sedated, paralyzed. CHEST: Decreased breath sounds, no wheezing. CARDIAC: Normal S1 and S2. ABDOMEN: No mass. ASSESSMENT AND PLAN: Coronavirus positive, bronchopneumonia, respiratory failure, acute respiratory distress syndrome. Zithromax, Maxipime on board along with steroids. He has made minimal improvement in his overall pulmonary status. Unfortunately, his endotracheal cuff was deflated via emergency. We will have it replaced by Anesthesia. Continue nutrition and supportive care. Continue prone position. Hopefully, we will try and get some plasma today. One-half hour of critical time. Job ID: [id number]
[2019-08-28] MEDS: Albuterol Sulfate 2.5 mg/3 ml Neb NEB SCH ×5 (00:08→23:55)
[2019-08-28] MEDS ORDERED: Bacteriostatic Normal Saline 30 ML VIAL ONE (00:09)
[2019-08-28] MEDS: Vecuronium 10 MG VIAL IVP PRN (00:10)
[2019-08-28] MEDS: Propofol 1,000 MG/100 ML VIAL IV PRN ×7 (02:50→22:27)
[2019-08-28] MEDS: fentaNYL Citrate/PF 2,000 MCG in Sodium Chloride 0.9% 60 ML IV SCH ×2 (03:25→14:44)
[2019-08-28 05:05] LABS: ALT (SGPT) 189 U/L (8-55); AST (SGOT) 79 U/L (5-34); Alkaline Phosphatase 83 U/L (40-110); Anion Gap 11 mmol/L (10-20); BUN (Urea Nitrogen) 60 mg/dL (8.4-25.7); Bilirubin, Total 0.9 mg/dL (0.2-1.2); CRP (Inflammatory) 1.15 mg/dL (= or < 0.5); Calc. Creatinine Clearance 174 mL/min (70-130); Calcium 8.7 mg/dL (7.8-10.44); Carbon Dioxide 30 mmol/L (22-29); Chloride 104 mmol/L (98-107); Estimated GFR-MDRD 67; Globulin 3.2 g/dL (2.4-3.5); Glucose 135 mg/dL (70-105); Potassium 5.1 mmol/L (3.5-5.1); Protein, Total 6.2 g/dL (6.0-8.3); Sodium 140 mmol/L (136-145)
[2019-08-28 05:08] LABS: Band 6 % (5-11); Hemoglobin 13.2 g/dL (14.0-18.0); Lymphocytes 6 % (21-51); MDiff Complete? YES; Mean Corpuscular HGB CONC 31.7 g/dL (32.0-36.0); Mean Corpuscular Hemoglobin 29.2 pg (27.0-31.0); Mean Platelet Volume 7.8 fL (7.4-10.4); Metamyelocyte 2 % (0-0); Monocytes 3 % (0-10); Neutrophil 83 % (42-75); Platelet Count 337 thou/uL (130-400); Platelet Morphology Comment Appears Adequate; RBC Distribution Width 12.6 % (11.5-14.5); Red Blood Cell (RBC) Count 4.53 mill/uL (4.70-6.10); White Blood Cell (WBC) Count 11.6 thou/uL (4.8-10.8)
--- NOTE | 2019-08-28 06:19 | PDOC.FM ---
- Subjective Subjective: Nursing reports minimal interval change, but is did fair overnight. - Objective MAR Reviewed: Yes Vital Signs & Weight: Vital Signs (12 hours) Temp Pulse Resp BP Pulse Ox 08/28/19 02:09 74 136/88 08/28/19 00:19 82 08/28/19 00:00 97.9 F 08/27/19 22:00 20 08/27/19 21:59 66 08/27/19 20:00 20 08/27/19 19:30 99 08/27/19 19:00 98.2 F 08/27/19 18:31 77 Weight Admit Weight 164.2 kg Weight 164 kg Most Recent Monitor Data Heart Rate from ECG 68 NIBP 124/76 NIBP BP-Mean 92 Respiration from ECG 20 SpO2 98 I&O: 08/26/19 08/27/19 08/28/19 06:59 06:59 06:59 Intake Total 2375 2277 1149.5 Output Total 2400 1800 2095 Balance -25 477 -945.5 Result Diagrams: 08/28/19 02:57 08/28/19 02:57 Phys Exam - Physical Examination Sedated, intubated, supine Neck: no JVD Coarse lung sounds Cardiovascular: RRR Gastrointestinal: soft, positive bowel sounds Musculoskeletal: pulses present Skin: cap refill <2 seconds Dx/Plan (1) COVID-19 virus infection Code(s): U07.1 - COVID-19 Status: Acute (2) HTN (hypertension) Code(s): I10 - ESSENTIAL (PRIMARY) HYPERTENSION Status: Acute (3) Hypokalemia Code(s): E87.6 - HYPOKALEMIA Status: Acute (4) Lactic acidosis Code(s): E87.2 - ACIDOSIS Status: Acute (5) Prolonged Q-T interval on ECG Code(s): R94.31 - ABNORMAL ELECTROCARDIOGRAM [ECG] [EKG] Status: Acute - Plan Plan: This is a 54 yo male with a pmh of HTN who is currently being treated for acute hypoxic respiratory failure 2/2 COVID-19 Code: FULL Prophylaxis: Pepcid, Lovenox 40mg BID Family: None at bedside per protocol Fluids: SL Diet: Tube feedings Lines/Tubes: ET/OT, 2 peripheral IVs, lafleur catheter Drips: Propofol and fentanyl I&Os: -945ml balance in the last 24 hr Vent settings: SIMV 20, TV 500, PS 15, PEEP 10, FIO2 50% Disposition: DC in 4-5 days, pending clinical improvement PCP: Dr. Ceballos ([facility]) Plan: This patient is currently receiving treatment for COVID-19. He is on cefepime, he has received Tocilizumab on 08/23. He is currently mechanically ventilated. Continue trending inflammatory markers. Plans to receive convalescent plasma today. Acute hypoxic respiratory failure 2/2 COVID-19 -Continued ventilator support -Day 13 of symptoms, positive COVID-19 test at [facility], Intubated on 08/22 -Continue trending inflammatory markers, all but ferritin have been trending down -QTc is stable -CXR shows diffuse opacities with no apparent improvement -Continue Methylprednisolone -Pulmonology consulted -Palliative care consulted Cardiomegaly on CXR -Trops/BNP negative -Strict I&Os Prolonged QTc -Improving Hypokalemia, resolved OLAMIDE, improving Elevated lactate, resolved Tranaminitis/Leukocytosis -Minimal changes, likely 2/2 disease process Addendum - Attending - Attending Attestation Date/Time: 08/28/19 5878 I personally evaluated the patient and discussed the management with Dr. Napoles. I agree with the History, Examination, Assessment and Plan documented above with any addition or exceptions noted below. continue supportive care. Peak and plateau pressures down trending.
[2019-08-28 07:24] LABS: Actual Bicarbonate (HCO3a) 29.1 mEq/L (22-28); CO2 Tension 56.1 mmHg (35.0-45.0); Carboxyhemoglobin (COHb) 0.9 gm% (0.0-3.0); Hemoglobin (Hb) 14.1 g/dL (14.0-18.0); O2 Tension (PaO2) 91.8 mmHg (80.0-100.0); Potassium - ABG Lab 5.02 mmol/L (3.70-5.30); pH, Arterial 7.33 (7.35-7.45)
[2019-08-28] MEDS: Amlodipine 5 MG TAB PO SCH (07:48)
[2019-08-28] MEDS: Enoxaparin Sodium 40 MG/0.4 ML SYRINGE SC SCH ×2 (07:49→20:02)
[2019-08-28] MEDS: methylPREDNISolone Sod Succ 40 MG VIAL IVP SCH ×2 (07:50→20:03)
[2019-08-28] MEDS: Famotidine/PF 20 mg/2ml Vial SLOW IVP SCH ×2 (07:50→20:02)
--- NOTE | 2019-08-28 07:58 | RAD ---
PORTABLE CHEST: DATE: 08/28/2019. PROVIDED CLINICAL HISTORY: Pneumonia. FINDINGS: Comparison is made with the study dated 08/27/2019. Cardiac and mediastinal silhouette is within norm al limits. Enteric catheter is again noted. The examination is performed in kyphotic positioning. Endotracheal tube is likely still present, the tip of which terminates above the region of the thorac ic inlet and could be advanced. Appearance of improved lung aeration may be technical. No pleural f luid or pneumothorax apparent. IMPRESSION: 1. Presumed endotracheal tube positioning as described. 2. Improved lung aeration versus improved technique. POS: JENN
[2019-08-28 08:07] LABS: Puncture Site RRA
[2019-08-28 08:08] LABS: ALV-art Gradient 194.575 (0-20)
[2019-08-28] MEDS: Sodium Chloride 0.9% 1,000 ML IV SCH ×2 (08:45→20:04)
--- NOTE | 2019-08-28 09:44 | PRG ---
DATE OF SERVICE: 08/28/2019 SUBJECTIVE: This morning, he is in the vent, sedated. OBJECTIVE: VITAL SIGNS: Pulse 64, blood pressure , sats 99%. His I's and O's have been consistently ahead. CHEST: No wheezing or crackles. CARDIAC: Normal S1 and S2. No gallop. ABDOMEN: Massive. EXTREMITIES: No edema. LABORATORY DATA: White count 11,000, hemoglobin and hematocrit of 13 and 41, platelet count 337. PO2 is 91, pCO2 is 56, pH 7.33. Lytes are normal. BUN is slightly elevated at 60 and creatinine 1.4. His C-reactive protein down to 1.5. X-ray shows much improvement. ASSESSMENT: Acute respiratory distress syndrome, coronavirus pneumonia, respiratory failure much improved. PLAN: Continue Maxipime. Continue steroids. Continue nutrition. Adjust vent. Avoid paralytics. Slow hydration. We will follow. One-half hour of critical time. Job ID: [id number]
[2019-08-28] MEDS: Lorazepam 2 MG/ML VIAL SLOW IVP PRN ×3 (10:56→20:34)
[2019-08-28] MEDS: Cefepime 1 GM in Sodium Chloride 0.9% 100 ML IVPB SCH (13:15)
[2019-08-29] MEDS: Cefepime 1 GM in Sodium Chloride 0.9% 100 ML IVPB SCH ×3 (02:06→14:39)
[2019-08-29] MEDS: Propofol 1,000 MG/100 ML VIAL IV PRN ×7 (02:07→22:42)
[2019-08-29] MEDS: fentaNYL Citrate/PF 2,000 MCG in Sodium Chloride 0.9% 60 ML IV SCH ×2 (02:09→15:42)
[2019-08-29] MEDS: Lorazepam 2 MG/ML VIAL SLOW IVP PRN ×2 (05:41→11:48)
[2019-08-29 05:42] LABS: Band 3 % (5-11); Hemoglobin 12.6 g/dL (14.0-18.0); Hypochromia SLIGHT = 6-15 cells (100X) (0-5/hpf); Lymphocytes 8 % (21-51); MDiff Complete? YES; Mean Corpuscular HGB CONC 33.1 g/dL (32.0-36.0); Mean Corpuscular Hemoglobin 30.5 pg (27.0-31.0); Mean Platelet Volume 7.7 fL (7.4-10.4); Monocytes 1 % (0-10); Neutrophil 88 % (42-75); Platelet Count 288 thou/uL (130-400); Platelet Morphology Comment Appears Adequate; RBC Distribution Width 12.6 % (11.5-14.5); Red Blood Cell (RBC) Count 4.14 mill/uL (4.70-6.10)
[2019-08-29 05:55] LABS: ALT (SGPT) 178 U/L (8-55); AST (SGOT) 56 U/L (5-34); Albumin 2.9 g/dL (3.5-5.0); Alkaline Phosphatase 65 U/L (40-110); Anion Gap 9 mmol/L (10-20); BUN (Urea Nitrogen) 60 mg/dL (8.4-25.7); Bilirubin, Total 0.7 mg/dL (0.2-1.2); CRP (Inflammatory) 0.56 mg/dL (= or < 0.5); Calc. Creatinine Clearance 200 mL/min (70-130); Calcium 8.3 mg/dL (7.8-10.44); Carbon Dioxide 30 mmol/L (22-29); Chloride 108 mmol/L (98-107); Estimated GFR-MDRD 82; Globulin 2.7 g/dL (2.4-3.5); Glucose 114 mg/dL (70-105); Potassium 4.8 mmol/L (3.5-5.1); Protein, Total 5.6 g/dL (6.0-8.3); Sodium 142 mmol/L (136-145)
--- NOTE | 2019-08-29 06:24 | PDOC.FM ---
- Subjective Subjective: NAEO. Attempts are being made to wean his sedation. - Objective MAR Reviewed: Yes Vital Signs & Weight: Vital Signs (12 hours) Temp Pulse BP Pulse Ox 08/29/19 04:00 98.8 F 08/29/19 02:10 69 130/70 08/29/19 00:01 68 132/75 08/28/19 23:00 98.1 F 08/28/19 22:34 65 08/28/19 19:30 100 08/28/19 18:34 86 Weight Admit Weight 164.2 kg Weight 158.6 kg Most Recent Monitor Data Heart Rate from ECG 63 NIBP 120/74 NIBP BP-Mean 89 Respiration from ECG 20 SpO2 100 I&O: 08/27/19 08/28/19 08/29/19 06:59 06:59 06:59 Intake Total 2277 2082.1 3257.1 Output Total 1800 2320 2470 Balance 477 -237.9 787.1 Result Diagrams: 08/29/19 05:13 08/29/19 05:13 Phys Exam - Physical Examination Intubated and sedated Neck: no JVD Improving breath sounds Cardiovascular: RRR, no significant murmur Gastrointestinal: soft, no distention, positive bowel sounds Musculoskeletal: no edema, pulses present Skin: cap refill <2 seconds Dx/Plan (1) COVID-19 virus infection Code(s): U07.1 - COVID-19 Status: Acute (2) HTN (hypertension) Code(s): I10 - ESSENTIAL (PRIMARY) HYPERTENSION Status: Acute (3) Hypokalemia Code(s): E87.6 - HYPOKALEMIA Status: Acute (4) Lactic acidosis Code(s): E87.2 - ACIDOSIS Status: Acute (5) Prolonged Q-T interval on ECG Code(s): R94.31 - ABNORMAL ELECTROCARDIOGRAM [ECG] [EKG] Status: Acute - Plan Plan: This is a 54 yo male with a pmh of HTN who is currently being treated for acute hypoxic respiratory failure 2/2 COVID-19 Code: FULL Prophylaxis: Pepcid, Lovenox 40mg BID Family: None at bedside per protocol Fluids: SL Diet: Tube feedings Lines/Tubes: ET/OT, 2 peripheral IVs, lafleur catheter Drips: Propofol and fentanyl I&Os: -575ml balance in the last 24 hr Vent settings: SIMV 20, TV 500, PS 15, PEEP 8, Fio2 40% Disposition: DC in 4-5 days, pending clinical improvement PCP: Dr. Ceballos ([facility]) Plan: This patient is currently receiving treatment for COVID-19. He is on cefepime, he has received Tocilizumab on 08/23. He is currently mechanically ventilated. Continue trending inflammatory markers. Plans to receive convalescent plasma Acute hypoxic respiratory failure 2/2 COVID-19 -Continued ventilator support -Day 14 of symptoms, positive COVID-19 test at [facility], Intubated on 08/22 -Continue trending inflammatory markers -QTc is stable -CXR shows diffuse opacities with some improvement -Continue Methylprednisolone -Pulmonology consulted -Palliative care consulted Cardiomegaly on CXR -Trops/BNP negative -Strict I&Os Prolonged QTc -Improving Hypokalemia, resolved OLAMIDE, improving Elevated lactate, resolved Tranaminitis/Leukocytosis -Minimal changes, likely 2/2 disease process Addendum - Attending - Attending Attestation Date/Time: 08/29/19 2041 I personally evaluated the patient and discussed the management with Dr. Napoles. I agree with the History, Examination, Assessment and Plan documented above with any addition or exceptions noted below.
[2019-08-29 06:52] LABS: Actual Bicarbonate (HCO3a) 30.7 mEq/L (22-28); Base Excess (BEa) 4.2 mEq/L (-2.0 to +3.0); CO2 Tension 53.9 mmHg (35.0-45.0); Calcium, Ionized 1.19 mmol/L (1.12-1.30); Carboxyhemoglobin (COHb) 0.9 gm% (0.0-3.0); Hemoglobin (Hb) 13.2 g/dL (14.0-18.0); O2 Tension (PaO2) 68.8 mmHg (80.0-100.0); Potassium - ABG Lab 4.74 mmol/L (3.70-5.30); pH, Arterial 7.37 (7.35-7.45)
[2019-08-29] MEDS: Albuterol Sulfate 2.5 mg/3 ml Neb NEB SCH ×3 (07:07→18:28)
[2019-08-29 07:18] LABS: ALV-art Gradient 149.025 (0-20); Puncture Site LR
--- NOTE | 2019-08-29 07:40 | RAD ---
Exam: Chest one view HISTORY:Pneumonia. COVID assessment. Comparison: 08/28/2019 FINDINGS: Lines and tubes: Endotracheal tube proximal to the clavicle. Nasogastric tube extends beyond the diap hragm. Distal tip is not seen. Cardiac silhouette:Stable cardiomegaly. Aorta: Unremarkable Pulmonary vessels: Normal Costophrenic angles: Bilateral pleural effusion LUNGS: Scattered interstitial and alveolar opacities. Pneumothorax: None Osseous abnormalities: None IMPRESSION: No significant interval change. Redemonstration of multifocal parenchymal opacification w hich may represent an atypical infiltrate.
[2019-08-29] MEDS: Famotidine/PF 20 mg/2ml Vial SLOW IVP SCH ×2 (08:43→20:14)
[2019-08-29] MEDS: Amlodipine 5 MG TAB PO SCH (08:43)
[2019-08-29] MEDS: Bacteriostatic Water 30 ML VIAL FS PRN (08:44)
[2019-08-29] MEDS: methylPREDNISolone Sod Succ 40 MG VIAL IVP SCH ×2 (08:44→20:14)
[2019-08-29] MEDS: Enoxaparin Sodium 40 MG/0.4 ML SYRINGE SC SCH ×2 (08:44→20:14)
--- NOTE | 2019-08-29 09:30 | PRG ---
DATE OF SERVICE: 08/29/2019 SUBJECTIVE: Washington Skaggs is a 54-year-old morbidly obese gentleman, remains intubated in the vent, sedated on fentanyl and Diprivan. OBJECTIVE: VITAL SIGNS: His temperature is 98, pulse 68, blood pressure 120/74, respiratory rate 18. CHEST: Decreased breath sounds. No wheezing. CARDIAC: Normal S1, S2. No gallops. ABDOMEN: Massive. LABORATORY DATA: White count 10,000, H and H 12 and 38, platelet count 286. PO2 68, pCO2 53, ph 7.38 pressure support of 15, 8 of PEEP, rate of 20, 40% FiO2, BUN and creatinine are 60 and 0.96. AST, ALT slightly elevated. IMPRESSION: Coronavirus positive, pneumonia, respiratory failure, acute respiratory distress syndrome, morbid obesity, probably underlying sleep apnea. PLAN: Continue Maxipime, Lovenox 40 q.12, Pepcid, MDI inhaler. Supportive care. We are trying to minimize his sedation to see we can start weaning if possible. Additionally, we are going to hold off giving him any paralytics. Continue nutrition. Unfortunately, we are not able to get any PT to see him. One-half hour of critical time. Job ID: [id number] MTDD
[2019-08-29] MEDS: Sodium Chloride 0.9% 1,000 ML IV SCH (11:48)
[2019-08-30] MEDS: Sodium Chloride 0.9% 1,000 ML IV SCH ×4 (00:18→19:54)
[2019-08-30] MEDS: Albuterol Sulfate 2.5 mg/3 ml Neb NEB SCH ×5 (00:37→23:25)
[2019-08-30] MEDS: Propofol 1,000 MG/100 ML VIAL IV PRN ×4 (04:49→19:54)
[2019-08-30] MEDS: Cefepime 1 GM in Sodium Chloride 0.9% 100 ML IVPB SCH ×2 (04:54→16:46)
[2019-08-30 05:45] LABS: ALT (SGPT) 173 U/L (8-55); AST (SGOT) 53 U/L (5-34); Alkaline Phosphatase 65 U/L (40-110); Anion Gap 11 mmol/L (10-20); BUN (Urea Nitrogen) 50 mg/dL (8.4-25.7); Bilirubin, Total 0.7 mg/dL (0.2-1.2); Calc. Creatinine Clearance 237 mL/min (70-130); Calcium 8.6 mg/dL (7.8-10.44); Carbon Dioxide 29 mmol/L (22-29); Chloride 110 mmol/L (98-107); Estimated GFR-MDRD Greater than 90; Globulin 2.7 g/dL (2.4-3.5); Glucose 113 mg/dL (70-105); Potassium 4.6 mmol/L (3.5-5.1); Protein, Total 5.7 g/dL (6.0-8.3); Sodium 145 mmol/L (136-145)
[2019-08-30 05:55] LABS: Mean Corpuscular Hemoglobin 29.5 pg (27.0-31.0); Mean Corpuscular Volume 92.3 fL (78.0-98.0); Mean Platelet Volume 7.8 fL (7.4-10.4); Platelet Count 271 thou/uL (130-400); RBC Distribution Width 13.1 % (11.5-14.5); White Blood Cell (WBC) Count 11.2 thou/uL (4.8-10.8)
[2019-08-30 05:58] LABS: Band 3 % (5-11); Lymphocytes 10 % (21-51); MDiff Complete? YES; Monocytes 1 % (0-10); Neutrophil 86 % (42-75)
--- NOTE | 2019-08-30 06:22 | PDOC.FM ---
- Subjective Subjective: Nursing states he is making purposeful movements and is following commands. She reports NAEO other donaldson. Blood bank reports that they have the FFP ready for him. - Objective MAR Reviewed: Yes Vital Signs & Weight: Vital Signs (12 hours) Temp Pulse Resp BP Pulse Ox 08/30/19 02:15 93 132/76 08/30/19 00:38 108 H 08/30/19 00:00 98.9 F 20 08/29/19 22:08 77 136/85 08/29/19 22:00 20 08/29/19 20:00 98.8 F 20 100 08/29/19 18:28 80 135/77 Weight Admit Weight 164.2 kg Weight 158.6 kg Most Recent Monitor Data Heart Rate from ECG 104 NIBP 142/87 NIBP BP-Mean 105 Respiration from ECG 22 SpO2 100 I&O: 08/28/19 08/29/19 08/30/19 06:59 06:59 06:59 Intake Total 2082.1 3257.1 1566 Output Total 2320 2470 1350 Balance -237.9 787.1 216 Result Diagrams: 08/30/19 04:50 08/30/19 04:50 Phys Exam - Physical Examination intubated, mild sedation, opens eyes HEENT: PERRLA Neck: no JVD improving breathsounds globally Cardiovascular: RRR, no significant murmur Gastrointestinal: soft, no distention Musculoskeletal: no edema Skin: cap refill <2 seconds Dx/Plan (1) COVID-19 virus infection Code(s): U07.1 - COVID-19 Status: Acute (2) HTN (hypertension) Code(s): I10 - ESSENTIAL (PRIMARY) HYPERTENSION Status: Acute (3) Hypokalemia Code(s): E87.6 - HYPOKALEMIA Status: Acute (4) Lactic acidosis Code(s): E87.2 - ACIDOSIS Status: Acute (5) Prolonged Q-T interval on ECG Code(s): R94.31 - ABNORMAL ELECTROCARDIOGRAM [ECG] [EKG] Status: Acute - Plan Plan: This is a 54 yo male with a pmh of HTN who is currently being treated for acute hypoxic respiratory failure 2/2 COVID-19 Code: FULL Prophylaxis: Pepcid, Lovenox 40mg BID Family: None at bedside per protocol Fluids: SL Diet: Tube feedings Lines/Tubes: ET/OT, 2 peripheral IVs, lafleur catheter Drips: Propofol and fentanyl I&Os: 216ml balance in the last 24 hr Vent settings: SIMV 11.7, TV 500, PS 12, PEEP 8, FIO2 40%, Peak/plateau pressure Disposition: DC in 4-5 days, pending clinical improvement PCP: Dr. Ceballos ([facility]) Plan: This patient is currently receiving treatment for COVID-19. He is on cefepime, he has received Tocilizumab on 08/23. He is currently mechanically ventilated. Continue trending inflammatory markers. Plans to receive convalescent plasma today Acute hypoxic respiratory failure / COVID-19 -Continued ventilator support -Day 14 of symptoms, positive COVID-19 test at [facility], Intubated on 08/22 -Continue trending inflammatory markers -QTc is stable -CXR shows diffuse opacities with some improvement -Continue Methylprednisolone -Pulmonology consulted -Palliative care consulted Cardiomegaly on CXR -Trops/BNP negative -Strict I&Os Prolonged QTc -Improving Hypokalemia, resolved OLAMIDE, resolved Elevated lactate, resolved Tranaminitis/Leukocytosis -Minimal changes, likely 2/2 disease process Wound on his left cheek, likely from proning, will monitor Addendum - Attending - Attending Attestation Date/Time: 08/30/19 6484 I personally evaluated the patient and discussed the management with Dr. Napoles. I agree with the History, Examination, Assessment and Plan documented above with any addition or exceptions noted below. convolesant plasma today. mentation improving off sedation. slowly weaning vent.
[2019-08-30 07:12] LABS: Actual Bicarbonate (HCO3a) 28.6 mEq/L (22-28); Base Excess (BEa) 3.5 mEq/L (-2.0 to +3.0); CO2 Tension 45.2 mmHg (35.0-45.0); Calcium, Ionized 1.21 mmol/L (1.12-1.30); Carboxyhemoglobin (COHb) 1.3 gm% (0.0-3.0); Hemoglobin (Hb) 12.4 g/dL (14.0-18.0); O2 Tension (PaO2) 78.4 mmHg (80.0-100.0); Potassium - ABG Lab 4.43 mmol/L (3.70-5.30); pH, Arterial 7.42 (7.35-7.45)
[2019-08-30 07:13] LABS: Puncture Site LR
--- NOTE | 2019-08-30 08:10 | RAD ---
PORTABLE CHEST: Date: 08/30/2019 PROVIDED CLINICAL HISTORY: Respiratory insufficiency. FINDINGS: Comparison with 08/29/2019. Significant interval change with respect to the prior examination is not apparent. IMPRESSION: As above. POS: JENN
[2019-08-30] MEDS: Enoxaparin Sodium 40 MG/0.4 ML SYRINGE SC SCH ×2 (08:53→19:53)
[2019-08-30] MEDS: methylPREDNISolone Sod Succ 40 MG VIAL IVP SCH ×2 (08:54→19:53)
[2019-08-30] MEDS: Amlodipine 5 MG TAB PO SCH (08:54)
[2019-08-30] MEDS: Famotidine/PF 20 mg/2ml Vial SLOW IVP SCH ×2 (08:54→19:53)
--- NOTE | 2019-08-30 08:57 | PRG ---
DATE OF SERVICE: 08/30/2019 SUBJECTIVE: A 54-year-old morbidly obese male. This morning, he is more awake, more responsive. OBJECTIVE: VITAL SIGNS: Blood pressure 174/100, respiratory rate 18, pulse 80. CHEST: Decreased breath sounds. No wheezing. CARDIAC: Normal S1 and S2. No gallops. ABDOMEN: No mass. NEUROLOGIC: Responsive. LABORATORY DATA: White count 11,000, H and H of 13 and 40, and platelet count 273. PO2 of 78, pCO2 is 45, pH 7.42. BUN is still 50, slightly prerenal. AST 173. IMPRESSION: Coronavirus positive pneumonia, respiratory failure, morbid obesity, acute respiratory distress syndrome, mild azotemia. PLAN: Decrease steroids. Continue antibiotics. Supportive care. Decrease sedation. Try weaning slowly. One-half hour of critical time. We will follow. Job ID: [id number]
[2019-08-30] MEDS: fentaNYL Citrate/PF 2,000 MCG in Sodium Chloride 0.9% 60 ML IV SCH (12:20)
[2019-08-30] MEDS ORDERED: Dextromethorphan Polistirex 30 MG/5 ML (89 ML BOTTLE) PER TUBE PRN (13:42)
[2019-08-30] MEDS: Lorazepam 2 MG/ML VIAL SLOW IVP PRN (21:08)
[2019-08-31] MEDS: Propofol 1,000 MG/100 ML VIAL IV PRN ×4 (03:11→22:56)
[2019-08-31 04:04] LABS: ALT (SGPT) 154 U/L (8-55); AST (SGOT) 52 U/L (5-34); Alkaline Phosphatase 60 U/L (40-110); Anion Gap 8 mmol/L (10-20); BUN (Urea Nitrogen) 42 mg/dL (8.4-25.7); Bilirubin, Total 0.8 mg/dL (0.2-1.2); Calc. Creatinine Clearance 266 mL/min (70-130); Calcium 8.8 mg/dL (7.8-10.44); Carbon Dioxide 31 mmol/L (22-29); Chloride 112 mmol/L (98-107); Estimated GFR-MDRD Greater than 90; Globulin 2.6 g/dL (2.4-3.5); Glucose 111 mg/dL (70-105); Potassium 4.4 mmol/L (3.5-5.1); Protein, Total 5.6 g/dL (6.0-8.3); Sodium 147 mmol/L (136-145)
[2019-08-31 04:30] LABS: Band 5 % (5-11); Eosinophils 1 % (0-10); Hemoglobin 12.8 g/dL (14.0-18.0); Lymphocytes 19 % (21-51); MDiff Complete? YES; Mean Corpuscular HGB CONC 32.9 g/dL (32.0-36.0); Mean Corpuscular Hemoglobin 30.6 pg (27.0-31.0); Monocytes 4 % (0-10); Neutrophil 71 % (42-75); Platelet Count 222 thou/uL (130-400); RBC Distribution Width 12.8 % (11.5-14.5); Red Blood Cell (RBC) Count 4.19 mill/uL (4.70-6.10); White Blood Cell (WBC) Count 10.6 thou/uL (4.8-10.8)
[2019-08-31] MEDS: fentaNYL Citrate/PF 2,000 MCG in Sodium Chloride 0.9% 60 ML IV SCH ×2 (04:49→22:55)
[2019-08-31] MEDS: Cefepime 1 GM in Sodium Chloride 0.9% 100 ML IVPB SCH ×2 (04:49→17:05)
[2019-08-31] MEDS: Albuterol Sulfate 2.5 mg/3 ml Neb NEB SCH ×3 (06:30→20:05)
--- NOTE | 2019-08-31 06:51 | PDOC.FM ---
- Subjective Subjective: NAEO per nursing. Nursing report increased mentation and pt continues following commands. - Objective MAR Reviewed: Yes Vital Signs & Weight: Vital Signs (12 hours) Temp Pulse Resp BP Pulse Ox 08/31/19 06:31 97 08/31/19 06:30 67 17 98 08/31/19 06:00 15 08/31/19 04:05 88 08/31/19 03:00 99.5 F 08/31/19 02:00 21 H 08/31/19 00:00 99.2 F 28 H 08/30/19 23:27 87 155/89 H 08/30/19 23:25 99 08/30/19 22:00 14 08/30/19 20:00 28 H 99 08/30/19 19:17 100 08/30/19 19:08 99 08/30/19 19:00 98.2 F Weight Admit Weight 164.2 kg Weight 166.1 kg Most Recent Monitor Data Heart Rate from ECG 91 NIBP 139/91 NIBP BP-Mean 107 Respiration from ECG 20 SpO2 98 I&O: 08/29/19 08/30/19 08/31/19 06:59 06:59 06:59 Intake Total 3257.1 3043 3937 Output Total 2470 1690 3100 Balance 787.1 1353 837 Result Diagrams: 08/31/19 03:15 08/31/19 03:15 Phys Exam - Physical Examination Following commands Neck: no JVD Coarse breathsounds, good air movement Cardiovascular: RRR, no significant murmur Gastrointestinal: soft, no distention Musculoskeletal: no edema, pulses present Neurological: moves all 4 limbs Skin: cap refill <2 seconds Dx/Plan (1) COVID-19 virus infection Code(s): U07.1 - COVID-19 Status: Acute (2) HTN (hypertension) Code(s): I10 - ESSENTIAL (PRIMARY) HYPERTENSION Status: Acute (3) Hypokalemia Code(s): E87.6 - HYPOKALEMIA Status: Acute (4) Lactic acidosis Code(s): E87.2 - ACIDOSIS Status: Acute (5) Prolonged Q-T interval on ECG Code(s): R94.31 - ABNORMAL ELECTROCARDIOGRAM [ECG] [EKG] Status: Acute - Plan Plan: This is a 54 yo male with a pmh of HTN who is currently being treated for acute hypoxic respiratory failure 2/2 COVID-19 Code: FULL Prophylaxis: Pepcid, Lovenox 40mg BID Family: None at bedside per protocol Fluids: SL Diet: Tube feedings Lines/Tubes: ET/OT, 2 peripheral IVs, lafleur catheter Drips: Propofol and fentanyl I&Os: 1353 ml balance in the last 24 hr, adequate urine output Vent settings: SIMV 10, TV 500, PS 12, PEEP 6, FIO2 40% Disposition: DC in 4-5 days, pending clinical improvement PCP: Dr. Ceballos ([facility]) Plan: This patient is currently receiving treatment for COVID-19. He is on cefepime, he has received Tocilizumab on 08/23. He is currently mechanically ventilated. Continue trending inflammatory markers. Received convalescent plasma 08/29, plan to attempt weaning off ventilator with possible extubation in the next 48 hours. Acute hypoxic respiratory failure 2/2 COVID-19 -Continued ventilator support -Day 15 of symptoms, positive COVID-19 test at [facility], Intubated on 08/22 -Pending AM ABG -Continue tapering steroids -Pulmonology consulted -Palliative care consulted Cardiomegaly on CXR -Trops/BNP negative -Strict I&Os Prolonged QTc -Improving Hypokalemia, resolved OLAMIDE, resolved Elevated lactate, resolved Tranaminitis/Leukocytosis -Minimal changes, likely 2/2 disease process Wound on his left cheek, likely from proning, will monitor Addendum - Attending - Attending Attestation Date/Time: 08/31/19 1327 I personally evaluated the patient and discussed the management with Dr. Napoles. I agree with the History, Examination, Assessment and Plan documented above with any addition or exceptions noted below. Following commands. plan for extubation in the next 24-48 hrs per pulm.
[2019-08-31 06:54] LABS: Actual Bicarbonate (HCO3a) 30.4 mEq/L (22-28); Base Excess (BEa) 3.5 mEq/L (-2.0 to +3.0); CO2 Tension 55.9 mmHg (35.0-45.0); Calcium, Ionized 1.24 mmol/L (1.12-1.30); Carboxyhemoglobin (COHb) 1.2 gm% (0.0-3.0); Hemoglobin (Hb) 13.8 g/dL (14.0-18.0); O2 Tension (PaO2) 83.3 mmHg (80.0-100.0); Potassium - ABG Lab 4.08 mmol/L (3.70-5.30); pH, Arterial 7.35 (7.35-7.45)
[2019-08-31 07:14] LABS: Puncture Site LR
[2019-08-31 07:15] LABS: ALV-art Gradient 132.025 (0-20)
[2019-08-31] MEDS: Amlodipine 5 MG TAB PO SCH (08:05)
[2019-08-31] MEDS: methylPREDNISolone Sod Succ 40 MG VIAL IVP SCH ×2 (08:06→20:00)
[2019-08-31] MEDS: Enoxaparin Sodium 40 MG/0.4 ML SYRINGE SC SCH ×2 (08:06→20:00)
[2019-08-31] MEDS: Famotidine/PF 20 mg/2ml Vial SLOW IVP SCH ×2 (08:06→20:00)
--- NOTE | 2019-08-31 08:42 | RAD ---
CHEST ONE VIEW: Indication: Pneumonia. Comparison: 08-30-2019 FINDINGS: Bilateral airspace opacities, cardiomegaly and small bilateral pleural effusions persists. ET tube an d gastric catheter unchanged. No pneumothorax or evident. IMPRESSION: Stable examination to the prior dated 08-30-2019. POS: BH
[2019-08-31] MEDS ORDERED: Laxative Of Choice PO PRN (09:08)
--- NOTE | 2019-08-31 09:13 | PRG ---
DATE OF SERVICE: 08/31/2019 SUBJECTIVE: Washington Skaggs is a 54-year-old morbidly obese gentleman, this morning, is more awake, responsive. OBJECTIVE: VITAL SIGNS: Temperature 97, blood pressure 150/88, respiratory rate 18, sats 100%. I's and O's are even. GENERAL: Awake, responsive. Does extremely weak. CHEST: Decreased breath sounds. No wheezing. CARDIAC: Normal S1 and S2. No gallops. ABDOMEN: Massive. NEUROLOGIC: Awake, alert, responsive. LABORATORY DATA: White count 01831. PO2 is 83, pCO2 rate of 14, PEEP of 7. Lytes are normal. Foot x-ray this morning, still shows significant bilateral infiltrates. IMPRESSION: Respiratory failure, bilateral bronchopneumonia, morbid obesity, otherwise positive pneumonia, probably baseline sleep apnea. I spoke to his at length yesterday. Decrease sedation. We will try and wean, hopefully we can extubate in the next 24 hours. Discontinue all paralytics. One-half hour of critical time. Job ID: [id number]
--- NOTE | 2019-08-31 14:59 | PRG ---
DATE OF SERVICE: 08/31/2019 Transition of care note. Please refer to Clarice Ramirez's transition of care note transcribed on 2019 for further details. In brief, this is a 54-year-old male with a past medical history of morbid obesity, who has been treated for COVID-19 positive bilateral viral pneumonia. Since the transition of care note, the patient has undergone serial ABGs as well as serial chest x-rays which have shown slow improvements. On the 29 of August, the patient received one dose of convalescent plasma at approximately 13:47. At the time of this transition of care note, the patient has improved greatly, is following commands and is continued to be weaned off the ventilator. Hydroxychloroquine has been discontinued during this week as he is nearing extubation. We have also begun weaning steroids at this point. Pulmonology continues following closely alongside us. Palliative Care has been consulted and has been assisting with family support. Palliative Care has been in touch with the patient's family. Hopefully, the patient will be extubated in the next 48 hours and will continue along the road to recovery. Please see serials ABGs and chest x-ray for further details. Job ID: [id number] MTDD
[2019-08-31] MEDS: Sodium Chloride 0.9% 1,000 ML IV SCH ×2 (16:06→17:06)
[2019-09-01] MEDS: Albuterol Sulfate 2.5 mg/3 ml Neb NEB SCH ×2 (01:19→07:14)
[2019-09-01] MEDS: Propofol 1,000 MG/100 ML VIAL IV PRN ×2 (02:02→04:52)
[2019-09-01] MEDS: Cefepime 1 GM in Sodium Chloride 0.9% 100 ML IVPB SCH ×2 (04:52→16:25)
[2019-09-01] MEDS: Sodium Chloride 0.9% 1,000 ML IV SCH ×2 (04:52→20:13)
[2019-09-01 05:32] LABS: Hemoglobin 12.7 g/dL (14.0-18.0); Mean Corpuscular HGB CONC 31.7 g/dL (32.0-36.0); Mean Corpuscular Hemoglobin 29.6 pg (27.0-31.0); Mean Corpuscular Volume 93.6 fL (78.0-98.0); Mean Platelet Volume 8.3 fL (7.4-10.4); Platelet Count 193 thou/uL (130-400); RBC Distribution Width 13.1 % (11.5-14.5); White Blood Cell (WBC) Count 9.9 thou/uL (4.8-10.8)
[2019-09-01 05:37] LABS: Band 5 % (5-11); Lymphocytes 13 % (21-51); MDiff Complete? YES; Monocytes 11 % (0-10); Neutrophil 71 % (42-75)
[2019-09-01 05:41] LABS: ALT (SGPT) 155 U/L (8-55); AST (SGOT) 48 U/L (5-34); Alkaline Phosphatase 57 U/L (40-110); Anion Gap 9 mmol/L (10-20); BUN (Urea Nitrogen) 39 mg/dL (8.4-25.7); Bilirubin, Total 0.7 mg/dL (0.2-1.2); Calc. Creatinine Clearance 273 mL/min (70-130); Calcium 8.7 mg/dL (7.8-10.44); Carbon Dioxide 29 mmol/L (22-29); Chloride 111 mmol/L (98-107); Estimated GFR-MDRD Greater than 90; Globulin 2.5 g/dL (2.4-3.5); Glucose 101 mg/dL (70-105); Potassium 3.9 mmol/L (3.5-5.1); Protein, Total 5.5 g/dL (6.0-8.3); Sodium 145 mmol/L (136-145)
--- NOTE | 2019-09-01 06:55 | PDOC.FM ---
- Subjective Subjective: Per nursing, pt is a little altered this AM post extubation. - Objective MAR Reviewed: Yes Vital Signs & Weight: Vital Signs (12 hours) Temp Pulse Resp Pulse Ox 09/01/19 05:56 18 09/01/19 04:00 16 09/01/19 03:04 78 09/01/19 02:00 14 09/01/19 01:19 87 20 100 09/01/19 01:16 95 09/01/19 00:00 15 08/31/19 23:00 99.9 F H 08/31/19 22:00 15 08/31/19 21:54 78 08/31/19 20:05 77 17 98 08/31/19 20:02 74 08/31/19 20:00 99 08/31/19 19:48 17 08/31/19 19:00 99.1 F Weight Admit Weight 164.2 kg Weight 167.4 kg Most Recent Monitor Data Heart Rate from ECG 75 NIBP 134/82 NIBP BP-Mean 99 Respiration from ECG 12 SpO2 100 I&O: 08/30/19 08/31/19 09/01/19 06:59 06:59 06:59 Intake Total 3043 3937 4375.3 Output Total 1690 3100 4350 Balance 1353 837 25.3 Result Diagrams: 09/01/19 04:55 09/01/19 04:55 Phys Exam - Physical Examination Constitutional: NAD HEENT: moist MMs Neck: no JVD Coarse breathsounds Cardiovascular: RRR, no significant murmur Gastrointestinal: soft, no distention Musculoskeletal: no edema, pulses present Neurological: moves all 4 limbs Skin: cap refill <2 seconds Dx/Plan (1) COVID-19 virus infection Code(s): U07.1 - COVID-19 Status: Acute (2) HTN (hypertension) Code(s): I10 - ESSENTIAL (PRIMARY) HYPERTENSION Status: Acute (3) Hypokalemia Code(s): E87.6 - HYPOKALEMIA Status: Acute (4) Lactic acidosis Code(s): E87.2 - ACIDOSIS Status: Acute (5) Prolonged Q-T interval on ECG Code(s): R94.31 - ABNORMAL ELECTROCARDIOGRAM [ECG] [EKG] Status: Acute - Plan Plan: This is a 54 yo male with a pmh of HTN who is currently being treated for acute hypoxic respiratory failure 2/2 COVID-19 Code: FULL Prophylaxis: Pepcid, Lovenox 40mg BID Family: None at bedside per protocol Fluids: SL Diet: Clear liquids Lines/Tubes: 2 peripheral IVs, lafleur catheter Drips: I&Os: 1353 ml balance in the last 24 hr, adequate urine output Vent settings: Extubated 08/31 Disposition: DC in 4-5 days, pending clinical improvement PCP: Dr. Ceballos ([facility]) Plan: This patient is currently receiving treatment for COVID-19. He is on cefepime, he has received Tocilizumab on 08/23. He is currently mechanically ventilated. Received convalescent plasma 08/29, Extubated on 08/31 Acute hypoxic respiratory failure 2/2 COVID-19 -Respiratory support as needed -Day 16 of symptoms, positive COVID-19 test at [facility], Intubated on 08/22, extubated on 08/31 -Continue tapering steroids -Pulmonology consulted -Palliative care consulted Cardiomegaly on CXR -Trops/BNP negative -Strict I&Os Prolonged QTc -Improving Hypokalemia, resolved OLAMIDE, resolved Elevated lactate, resolved Tranaminitis/Leukocytosis -Minimal changes, likely 2/2 disease process Wound on his left cheek, likely from proning, will monitor Addendum - Attending - Attending Attestation Date/Time: 09/01/19 3569 I personally evaluated the patient and discussed the management with Dr. Napoles. I agree with the History, Examination, Assessment and Plan documented above with any addition or exceptions noted below. Extubated this morning. Still a little confused but pleasant. Explained hospital course to date. Will start ST, PT, and OT today and begin arranged placement at rehab vs SNF.
[2019-09-01 07:11] LABS: Actual Bicarbonate (HCO3a) 27.5 mEq/L (22-28); Base Excess (BEa) 1.7 mEq/L (-2.0 to +3.0); CO2 Tension 47.4 mmHg (35.0-45.0); Calcium, Ionized 1.26 mmol/L (1.12-1.30); Carboxyhemoglobin (COHb) 1.5 gm% (0.0-3.0); Hemoglobin (Hb) 13.7 g/dL (14.0-18.0); O2 Tension (PaO2) 87.4 mmHg (80.0-100.0); Potassium - ABG Lab 4.21 mmol/L (3.70-5.30); pH, Arterial 7.38 (7.35-7.45)
--- NOTE | 2019-09-01 07:30 | RAD ---
CHEST 1 VIEW: INDICATION: History of pneumonia. COMPARISON: Prior exam dated 08/31/2019. IMPRESSION: ET tube and gastric catheter are unchanged. Diffuse airspace disease, cardiomegaly, and pulmonary va scular congestion are similar-appearing. Small bilateral pleural effusions persist. No pneumothorax is evident. POS: BH
[2019-09-01 07:41] LABS: Puncture Site LRA
[2019-09-01] MEDS ORDERED: Bupivacaine 0.25% HCL 30 ML VIAL ONE (07:46)
[2019-09-01] MEDS ORDERED: Lidocaine 2% w/Epinephrine 1:200K 20 ML VIAL ONE (07:46)
[2019-09-01] MEDS: Enoxaparin Sodium 40 MG/0.4 ML SYRINGE SC SCH ×2 (07:46→20:13)
[2019-09-01] MEDS: Amlodipine 5 MG TAB PO SCH (07:46)
[2019-09-01] MEDS: Famotidine/PF 20 mg/2ml Vial SLOW IVP SCH ×2 (07:47→20:14)
[2019-09-01] MEDS: methylPREDNISolone Sod Succ 40 MG VIAL IVP SCH ×2 (07:47→20:14)
--- NOTE | 2019-09-01 09:13 | PRG ---
DATE OF SERVICE: 09/01/2019 SUBJECTIVE: Morbidly obese gentleman. This morning, he is on CPAP, awake, responsive. Not much distress. OBJECTIVE: VITAL SIGNS: Temperature 98, pulse 93, blood pressure , respirations 18. CHEST: No wheezing. No crackles. CARDIAC: Normal S1, S2. No gallops. ABDOMEN: Soft. LABORATORY DATA: White count 9000, H and H and 40, platelet count 193. His PO2 is 87, pCO2 40, pH 7.38, on the CPAP. His lytes are normal. ALT is 155. X-ray still shows significant pneumonia, maybe somewhat better. ASSESSMENT: Respiratory failure, coronavirus positive pneumonia, morbid obesity. PLAN: We will try and wean and extubate today. We will hold on sedation. Continue low-dose steroids. PT, supportive care. DVT prophylaxis. Job ID: [id number]
[2019-09-01] MEDS ORDERED: DC Sedation Protocol FS ONE (09:23)
[2019-09-01] MEDS: Albuterol 200 PUFF (6.7GM INHALER) INH SCH ×2 (13:30→20:13)
[2019-09-02] MEDS: Albuterol 200 PUFF (6.7GM INHALER) INH SCH ×4 (00:51→18:11)
[2019-09-02] MEDS: Cefepime 1 GM in Sodium Chloride 0.9% 100 ML IVPB SCH ×2 (05:36→19:32)
[2019-09-02] MEDS: Sodium Chloride 0.9% 1,000 ML IV SCH (05:37)
[2019-09-02 06:39] LABS: ALT (SGPT) 158 U/L (8-55); AST (SGOT) 53 U/L (5-34); Alkaline Phosphatase 56 U/L (40-110); Anion Gap 9 mmol/L (10-20); BUN (Urea Nitrogen) 32 mg/dL (8.4-25.7); Calc. Creatinine Clearance 290 mL/min (70-130); Calcium 8.6 mg/dL (7.8-10.44); Carbon Dioxide 28 mmol/L (22-29); Chloride 109 mmol/L (98-107); Estimated GFR-MDRD Greater than 90; Globulin 2.4 g/dL (2.4-3.5); Glucose 85 mg/dL (70-105); Potassium 3.4 mmol/L (3.5-5.1); Protein, Total 5.4 g/dL (6.0-8.3); Sodium 143 mmol/L (136-145)
--- NOTE | 2019-09-02 07:35 | PDOC.FM ---
Addendum entered and electronically signed by Shereen Crowell MD 09/02/19 11:25 : A/P: -several liters up on fluid balance review -IV lasix 20mg x1 Original Note: - Subjective Subjective: doing well s/p extubation on 08/31. Tolerating liquids this morning. A little confused but overall feels thankful he is alive and no problems with breathing while on 3L [place] - Objective MAR Reviewed: Yes Vital Signs & Weight: Vital Signs (12 hours) Temp Pulse Pulse Ox 09/02/19 04:00 99.1 F 09/02/19 00:00 99 F 09/01/19 23:03 75 09/01/19 20:00 98.5 F 100 Weight Admit Weight 164.2 kg Weight 167.829 kg Most Recent Monitor Data Heart Rate from ECG 78 NIBP 159/90 NIBP BP-Mean 113 Respiration from ECG 15 SpO2 99 I&O: 09/01/19 09/02/19 09/03/19 06:59 06:59 06:59 Intake Total 4375.3 4229 Output Total 4350 1930 Balance 25.3 2299 Result Diagrams: 09/02/19 05:25 09/02/19 05:25 Phys Exam - Physical Examination Constitutional: NAD obese HEENT: sclera anicteric no respiratory distress, on nasal cannula Cardiovascular: RRR, no significant murmur Gastrointestinal: soft, non-tender Neurological: non-focal, moves all 4 limbs Psychiatric: normal affect Deviation from normal: a&o x2 Dx/Plan (1) COVID-19 virus infection Code(s): U07.1 - COVID-19 Status: Acute (2) HTN (hypertension) Code(s): I10 - ESSENTIAL (PRIMARY) HYPERTENSION Status: Acute (3) Hypokalemia Code(s): E87.6 - HYPOKALEMIA Status: Acute (4) Palliative care encounter Code(s): Z51.5 - ENCOUNTER FOR PALLIATIVE CARE Status: Acute (5) Prolonged Q-T interval on ECG Code(s): R94.31 - ABNORMAL ELECTROCARDIOGRAM [ECG] [EKG] Status: Acute - Plan Plan: This is a 54 yo male with a pmh of HTN who is currently being treated for acute hypoxic respiratory failure 2/2 COVID-19 Code: FULL Prophylaxis: Pepcid, Lovenox 40mg BID Family: None at bedside per protocol Fluids: SL Diet: Started PO Clear liquids, ADAT Lines/Tubes: 2 peripheral IVs, lafleur catheter Drips: None I&Os: 2299 ml balance in the last 24 hr, adequate urine output Vent settings: Extubated 08/31 Disposition: DC in 4-5 days, pending clinical improvement. PT to reeval today PCP: Dr. Ceballos ([facility]) Plan: This patient is currently receiving treatment for COVID-19. He is on cefepime, he has received Tocilizumab on 08/23. He is currently mechanically ventilated. Received convalescent plasma 08/29, Extubated on 08/31 Acute hypoxic respiratory failure 2/ COVID-19 - s/p mechanical ventilation, extubated 08/31. Currently 2L [place] -Day 17 of symptoms, positive COVID-19 test at [facility], Intubated on 08/22 -Continue tapering steroids -Pulmonology following -Palliative care following -Pending PT/ST today, can ADAT -Voiding trial since 10 days of catheter Cardiomegaly on CXR -Trops/BNP negative -Strict I&Os Prolonged QTc -Improving Hypokalemia -K 3.4, replace, check Mg OLAMIDE, resolved Elevated lactate, resolved Tranaminitis/Leukocytosis -Minimal changes, likely 2/2 disease process Wound on his left cheek, likely from proning, will monitor Addendum - Attending - Attending Attestation Date/Time: 09/02/19 1222 I personally evaluated the patient and discussed the management with Dr. Crowell. I agree with the History, Examination, Assessment and Plan documented above with any addition or exceptions noted below. Patient improving from COVID pneumonia and resp failure. He is now doing well on [place] oxygen. Continue to wean as tolerated. PT as he will need therapy. Still has some confusion which can be expected given his illness course.
[2019-09-02 07:46] LABS: Band 1 % (5-11); Eosinophils 2 % (0-10); Hemoglobin 12.4 g/dL (14.0-18.0); Lymphocytes 14 % (21-51); MDiff Complete? YES; Mean Corpuscular HGB CONC 31.9 g/dL (32.0-36.0); Mean Corpuscular Hemoglobin 29.6 pg (27.0-31.0); Mean Corpuscular Volume 92.7 fL (78.0-98.0); Mean Platelet Volume 8.5 fL (7.4-10.4); Monocytes 13 % (0-10); Neutrophil 70 % (42-75); Platelet Count 158 thou/uL (130-400); Platelet Morphology Comment Appears Adequate; RBC Distribution Width 13.1 % (11.5-14.5); RBC Morphology Normal; Red Blood Cell (RBC) Count 4.21 mill/uL (4.70-6.10); White Blood Cell (WBC) Count 8.6 thou/uL (4.8-10.8)
[2019-09-02] MEDS: Famotidine 20 MG TAB PER TUBE SCH ×2 (07:54→19:33)
[2019-09-02] MEDS: methylPREDNISolone Sod Succ 40 MG VIAL IVP SCH (07:55)
[2019-09-02] MEDS: Amlodipine 5 MG TAB PO SCH (07:55)
[2019-09-02] MEDS: Enoxaparin Sodium 40 MG/0.4 ML SYRINGE SC SCH ×2 (07:55→19:33)
--- NOTE | 2019-09-02 09:08 | PRG ---
DATE OF SERVICE: 09/02/2019 SUBJECTIVE: This morning, he is awake, alert, responsive. He was extubated yesterday. OBJECTIVE: VITAL SIGNS: Temperature 98, blood pressure 139/68, pulse 115, saturations 100%, respirations 18. CHEST: Decreased breath sounds. No wheezing. CARDIAC: Normal S1 and S2. No gallops. ABDOMEN: No mass. LABORATORY DATA: ALT is 158. X-ray still shows bilateral infiltrates, improved. Platelet count is normal. White count 8000. ASSESSMENT: 1. Respiratory failure, acute respiratory distress syndrome, coronavirus pneumonia. 2. Morbid obesity. PLAN: Continue Maxipime for few more days. Switch him over to oral medication. PT, supportive care. One-half hour of critical time. Job ID: [id number]
--- NOTE | 2019-09-02 09:24 | RAD ---
PORTABLE CHEST: DATE: 09/02/2019. PROVIDED CLINICAL HISTORY: Pneumonia. FINDINGS: Comparison 09/01/2019. Interval extubation and removal of enteric catheter. Additional significant i nterval change with respect to the prior examination is not apparent. IMPRESSION: As above. POS: JENN
[2019-09-02] MEDS ORDERED: Furosemide 20 MG/2 ML VIAL SLOW IVP SCH (11:30)
[2019-09-03] MEDS: Albuterol 200 PUFF (6.7GM INHALER) INH SCH ×5 (00:39→23:56)
[2019-09-03 04:25] LABS: Band 2 % (5-11); Eosinophils 4 % (0-10); Hemoglobin 12.3 g/dL (14.0-18.0); Lymphocytes 14 % (21-51); MDiff Complete? YES; Mean Corpuscular HGB CONC 33.4 g/dL (32.0-36.0); Mean Corpuscular Hemoglobin 30.2 pg (27.0-31.0); Mean Corpuscular Volume 90.5 fL (78.0-98.0); Mean Platelet Volume 8.9 fL (7.4-10.4); Monocytes 12 % (0-10); Neutrophil 68 % (42-75); Platelet Count 135 thou/uL (130-400); Red Blood Cell (RBC) Count 4.06 mill/uL (4.70-6.10); White Blood Cell (WBC) Count 7.4 thou/uL (4.8-10.8)
[2019-09-03 04:30] LABS: ALT (SGPT) 155 U/L (8-55); AST (SGOT) 58 U/L (5-34); Albumin 2.9 g/dL (3.5-5.0); Alkaline Phosphatase 52 U/L (40-110); Anion Gap 8 mmol/L (10-20); BUN (Urea Nitrogen) 27 mg/dL (8.4-25.7); Calc. Creatinine Clearance 290 mL/min (70-130); Calcium 8.4 mg/dL (7.8-10.44); Carbon Dioxide 29 mmol/L (22-29); Chloride 104 mmol/L (98-107); Estimated GFR-MDRD Greater than 90; Globulin 2.3 g/dL (2.4-3.5); Glucose 86 mg/dL (70-105); Protein, Total 5.2 g/dL (6.0-8.3); Sodium 138 mmol/L (136-145)
[2019-09-03 04:39] LABS: Potassium 2.9 mmol/L (3.5-5.1)
--- NOTE | 2019-09-03 07:35 | PDOC.FM ---
- Subjective Subjective: Doing well this AM. Reports breathing improved. Awake, conversive, just eat eaten breakfast. Working with PT. No other concerns - Objective MAR Reviewed: Yes Vital Signs & Weight: Vital Signs (12 hours) Temp Pulse Ox 09/03/19 07:07 98 09/03/19 07:00 98.6 F 09/03/19 04:00 98.1 F 09/02/19 23:00 97.6 F 09/02/19 20:00 96.1 F L 98 Weight Admit Weight 164.2 kg Weight 168.736 kg Most Recent Monitor Data Heart Rate from ECG 80 NIBP 139/86 NIBP BP-Mean 103 Respiration from ECG 20 SpO2 100 I&O: 09/02/19 09/03/19 09/04/19 06:59 06:59 06:59 Intake Total 4229 2356 0 Output Total 1930 2740 100 Balance 2299 -384 -100 Result Diagrams: 09/03/19 03:00 09/03/19 11:55 Phys Exam - Physical Examination Constitutional: NAD obese HEENT: sclera anicteric Neck: full ROM Respiratory: no wheezing no respiratory distress, resting comfortably on [place] Cardiovascular: RRR, no significant murmur Gastrointestinal: soft, non-tender Musculoskeletal: no edema Neurological: non-focal, moves all 4 limbs Psychiatric: normal affect Dx/Plan (1) COVID-19 virus infection Code(s): U07.1 - COVID-19 Status: Acute (2) HTN (hypertension) Code(s): I10 - ESSENTIAL (PRIMARY) HYPERTENSION Status: Acute (3) Hypokalemia Code(s): E87.6 - HYPOKALEMIA Status: Acute (4) Palliative care encounter Code(s): Z51.5 - ENCOUNTER FOR PALLIATIVE CARE Status: Acute (5) Prolonged Q-T interval on ECG Code(s): R94.31 - ABNORMAL ELECTROCARDIOGRAM [ECG] [EKG] Status: Acute - Plan Plan: This is a 54 yo male with a pmh of HTN who is currently being treated for acute hypoxic respiratory failure 06/09 COVID-19 Code: FULL Prophylaxis: pepcid, ppx lovenox Family: None at bedside per protocol Fluids: SL Diet: HH Lines/Tubes: 2 peripheral IVs, lafleur catheter Vent settings: Extubated 08/31 Disposition: DC in 4-5 days, pending clinical improvement. Pending placement for Rehab. PCP: Dr. Ceballos ([facility]) Plan: This patient is currently receiving treatment for COVID-19. He is on cefepime, he has received Tocilizumab on 08/23. Received convalescent plasma , Extubated on 08/31 Acute hypoxic respiratory failure 2/2 COVID-19 - s/p mechanical ventilation, extubated 08/31. Currently 2L [place] -Day of symptoms, positive COVID-19 test at [facility], Intubated on 08/22 -Continue tapering steroids -Pulmonology following -Palliative care following -Voiding trial since 10 days of catheter Cardiomegaly on CXR -Trops/BNP negative -Strict I&Os Prolonged QTc -Improving Hypokalemia -2.9, replace with 40IV and PO, recheck at noon OLAMIDE, resolved Elevated lactate, resolved Tranaminitis/Leukocytosis -Minimal changes, likely 2/2 disease process Wound on his left cheek, likely from proning, will monitor Addendum - Attending - Attending Attestation Date/Time: 09/03/19 0273 I personally evaluated the patient and discussed the management with Dr. Crowell. I agree with the History, Examination, Assessment and Plan documented above with any addition or exceptions noted below. Patient improved. Continue respiratory support. Moving to medical floor. Continue therapy, will need rehab.
[2019-09-03] MEDS: Amlodipine 5 MG TAB PO SCH (07:43)
[2019-09-03] MEDS: Cefepime 1 GM in Sodium Chloride 0.9% 100 ML IVPB SCH (07:44)
[2019-09-03] MEDS: predniSONE 20 MG TAB PO SCH (07:44)
[2019-09-03] MEDS: Enoxaparin Sodium 40 MG/0.4 ML SYRINGE SC SCH (07:44)
[2019-09-03] MEDS: Famotidine 20 MG TAB PER TUBE SCH (07:45)
--- NOTE | 2019-09-03 08:05 | RAD ---
PORTABLE CHEST: DATE: 09/03/2019. PROVIDED CLINICAL HISTORY: Pneumonia. FINDINGS: Comparison 09/02/2019. Significant interval change with respect to the prior examination is not appar ent. IMPRESSION: As above. POS: JENN
[2019-09-03 09:03] LABS: Phosphorus 2.7 mg/dL (2.3-4.7)
--- NOTE | 2019-09-03 09:03 | PRG ---
DATE OF SERVICE: 09/03/2019 SUBJECTIVE: A 54-year-old morbidly obese gentleman, who is extubated and is doing well. OBJECTIVE: VITAL SIGNS: Saturations are 98% on 2 liters, , blood pressure 130/68, respirations 18, . GENERAL: Eating, sitting on the side of the bed. CHEST: No wheezing or crackles. CARDIAC: Normal S1 and S2. No gallops. ABDOMEN: No masses. LABORATORY DATA: His white count is 7000. X-ray shows much improvement in his diffuse infiltrates. ASSESSMENT: 1. Coronavirus positive; respiratory failure; acute respiratory distress syndrome, improved. 2. Status post steroids, Cholestin plasma and prone position Pepcid. PLAN: He continues to be stable after he moved out of the ICU. Continue aggressive PT. Job ID: [id number]
[2019-09-03 09:05] LABS: Magnesium 1.6 mg/dL (1.6-2.6)
[2019-09-03] MEDS: Cefdinir 300 MG CAP PO SCH ×2 (09:06→20:22)
[2019-09-03] MEDS: Famotidine 20 MG TAB PO SCH ×2 (09:06→20:22)
[2019-09-03] MEDS ORDERED: Potassium Chloride 20 MEQ TAB PO SCH ×2 (11:00→17:48)
[2019-09-03 12:28] LABS: Anion Gap 10 mmol/L (10-20); BUN (Urea Nitrogen) 25 mg/dL (8.4-25.7); Calc. Creatinine Clearance 300 mL/min (70-130); Calcium 8.4 mg/dL (7.8-10.44); Carbon Dioxide 23 mmol/L (22-29); Chloride 105 mmol/L (98-107); Estimated GFR-MDRD Greater than 90; Glucose 113 mg/dL (70-105); Potassium 3.4 mmol/L (3.5-5.1); Sodium 135 mmol/L (136-145)
[2019-09-04 04:07] LABS: Anion Gap 10 mmol/L (10-20); BUN (Urea Nitrogen) 21 mg/dL (8.4-25.7); Calc. Creatinine Clearance 291 mL/min (70-130); Calcium 8.3 mg/dL (7.8-10.44); Carbon Dioxide 25 mmol/L (22-29); Chloride 108 mmol/L (98-107); Estimated GFR-MDRD Greater than 90; Glucose 87 mg/dL (70-105); Potassium 3.3 mmol/L (3.5-5.1); Sodium 140 mmol/L (136-145)
[2019-09-04] MEDS: Albuterol 200 PUFF (6.7GM INHALER) INH SCH ×3 (06:00→18:28)
[2019-09-04] MEDS ORDERED: Potassium Chloride 20 MEQ TAB PO SCH ×2 (07:12→07:15)
--- NOTE | 2019-09-04 07:23 | PDOC.FM ---
- Subjective Subjective: Patient resting comfortably on nasal cannula Still with short term memory issues but alert, awake, conversive Multiple loose BMs, discussed rectal tube - Objective MAR Reviewed: Yes Vital Signs & Weight: Vital Signs (12 hours) Temp Pulse Resp BP Pulse Ox 09/04/19 03:42 98 F 78 20 152/80 H 96 09/03/19 20:25 98.4 F 89 20 160/88 H 94 L Weight Admit Weight 164.2 kg Weight 167.376 kg Most Recent Monitor Data Heart Rate from ECG 81 NIBP 151/94 NIBP BP-Mean 113 Respiration from ECG 16 SpO2 99 I&O: 09/03/19 09/04/19 09/05/19 06:59 06:59 06:59 Intake Total 2356 1440 Output Total 2740 2540 Balance -384 -1100 Result Diagrams: 09/03/19 03:00 09/04/19 03:30 Phys Exam - Physical Examination Constitutional: NAD HEENT: moist MMs Neck: full ROM Respiratory: no wheezing, clear to auscultation bilateral Cardiovascular: RRR, no significant murmur Gastrointestinal: soft, non-tender Neurological: non-focal, moves all 4 limbs Dx/Plan (1) COVID-19 virus infection Code(s): U07.1 - COVID-19 Status: Acute (2) HTN (hypertension) Code(s): I10 - ESSENTIAL (PRIMARY) HYPERTENSION Status: Acute (3) Hypokalemia Code(s): E87.6 - HYPOKALEMIA Status: Acute (4) Palliative care encounter Code(s): Z51.5 - ENCOUNTER FOR PALLIATIVE CARE Status: Acute (5) Prolonged Q-T interval on ECG Code(s): R94.31 - ABNORMAL ELECTROCARDIOGRAM [ECG] [EKG] Status: Acute - Plan Plan: This is a 54 yo male with a pmh of HTN who is currently being treated for acute hypoxic respiratory failure 2/2 COVID-19 Code: FULL Prophylaxis: pepcid, ppx lovenox Family: None at bedside per protocol Fluids: SL Diet: HH Lines/Tubes: 2 peripheral IVs Vent settings: Extubated 08/31 Disposition: DC in 4-5 days, pending clinical improvement. Pending placement for Rehab. PCP: Dr. Ceballos ([facility]) Acute hypoxic respiratory failure 2/2 COVID-19 - s/p mechanical ventilation, extubated 08/31. Currently 2L [place] -Positive COVID-19 test at [facility], Intubated on 08/22 -Continue tapering steroids -Pulmonology following -Palliative care following Cardiomegaly on CXR -Trops/BNP negative -Strict I&Os Prolonged QTc -Resolved Hypokalemia -3.3, replace PO -Check Mg OLAMIDE, resolved Elevated lactate, resolved Tranaminitis/Leukocytosis -Minimal changes, likely 2/2 disease process Wound on his left cheek, likely from proning, will monitor 09/03 Plan: This patient is currently receiving treatment for COVID-19. He was transition from cefepime to omnicef. he has received Tocilizumab on 08/23. Received convalescent plasma 08/29, Extubated on 08/31. Undergoing aggressive PT, pending negative COVID test x2 for inpt rehab Discussed with Dr. Santos Addendum - Attending - Attending Attestation Date/Time: 09/04/19 1201 I personally evaluated the patient and discussed the management with Dr. Crowell. I agree with the History, Examination, Assessment and Plan documented above with any addition or exceptions noted below. Patient continues to improve. Less reliance on supplemental O2. Continues to have some confusion. Having loose stools, will check Cdiff but suspect this is due to reintro of diet. Continue Pulm recs. Working on getting patient to inpatient rehab.
[2019-09-04] MEDS: Enoxaparin Sodium 40 MG/0.4 ML SYRINGE SC SCH (07:52)
[2019-09-04] MEDS: predniSONE 20 MG TAB PO SCH (07:52)
[2019-09-04] MEDS: Cefdinir 300 MG CAP PO SCH ×2 (07:52→19:29)
[2019-09-04] MEDS: Amlodipine 10 MG TAB PO SCH (07:52)
[2019-09-04] MEDS: Famotidine 20 MG TAB PO SCH ×2 (07:52→19:29)
[2019-09-04] MEDS ORDERED: Konsyl 6 gm Packet PO SCH (09:00)
--- NOTE | 2019-09-04 09:18 | PRG ---
DATE OF SERVICE: 09/04/2019 SUBJECTIVE: A 54-year-old gentleman. OBJECTIVE: VITAL SIGNS: Temperature 98, pulse 88, oxygen saturations on 2 L is 94%, blood pressure 123/77. GENERAL: He is weak, but he is awake, alert, responsive. CHEST: Decreased breath sounds. No wheezing. CARDIAC: Normal S1 and S2. No gallops. ASSESSMENT: 1. Morbid obesity. 2. Respiratory failure, coronavirus positive. 3. Probably sleep apnea. PLAN: Continue PT, supportive care. Continue antibiotics as prescribed. Pulmonary will follow. Job ID: [id number]
[2019-09-04] MEDS: Metamucil PACK PO SCH (10:49)
[2019-09-04 17:59] LABS: SARS-CoV-2 MS2 Positive; SARS-CoV-2 N Gene Negative; SARS-CoV-2 S Gene Negative; SARS-CoV-2 orf1ab Negative
[2019-09-05] MEDS: Albuterol 200 PUFF (6.7GM INHALER) INH SCH ×4 (00:30→20:42)
[2019-09-05] MEDS ORDERED: Loperamide HCl 2 MG CAP PO PRN ×2 (02:01)
[2019-09-05 05:26] LABS: Anion Gap 9 mmol/L (10-20); BUN (Urea Nitrogen) 18 mg/dL (8.4-25.7); Calc. Creatinine Clearance 281 mL/min (70-130); Calcium 8.3 mg/dL (7.8-10.44); Carbon Dioxide 24 mmol/L (22-29); Chloride 108 mmol/L (98-107); Estimated GFR-MDRD Greater than 90; Glucose 81 mg/dL (70-105); Potassium 3.2 mmol/L (3.5-5.1); Sodium 138 mmol/L (136-145)
--- NOTE | 2019-09-05 06:37 | PDOC.FM ---
- Subjective Subjective: Patient doing well this morning. No issues breathing. Ready for inpatient rehab. Resting comfortably on nasal cannula - Objective MAR Reviewed: Yes Vital Signs & Weight: Vital Signs (12 hours) Temp Pulse Resp BP Pulse Ox 09/05/19 03:52 99.5 F 82 17 114/63 97 09/05/19 00:07 100.0 F H 91 20 118/75 93 L 09/04/19 20:10 97.3 F L 102 H 22 H 112/69 91 L Weight Admit Weight 164.2 kg Weight 165.3 kg Most Recent Monitor Data Heart Rate from ECG 81 NIBP 151/94 NIBP BP-Mean 113 Respiration from ECG 16 SpO2 99 I&O: 09/03/19 09/04/19 09/05/19 06:59 06:59 06:59 Intake Total 2356 1440 1810 Output Total 5380 7590 2125 Balance -233 -1100 -433 Result Diagrams: 09/03/19 03:00 09/05/19 04:45 Phys Exam - Physical Examination Constitutional: NAD HEENT: moist MMs Respiratory: no wheezing no respiratory istress Cardiovascular: RRR, no significant murmur Gastrointestinal: soft, non-tender, no distention Musculoskeletal: no edema Neurological: non-focal, moves all 4 limbs Dx/Plan (1) COVID-19 virus infection Code(s): U07.1 - COVID-19 Status: Acute (2) HTN (hypertension) Code(s): I10 - ESSENTIAL (PRIMARY) HYPERTENSION Status: Acute (3) Hypokalemia Code(s): E87.6 - HYPOKALEMIA Status: Acute (4) Palliative care encounter Code(s): Z51.5 - ENCOUNTER FOR PALLIATIVE CARE Status: Acute (5) Prolonged Q-T interval on ECG Code(s): R94.31 - ABNORMAL ELECTROCARDIOGRAM [ECG] [EKG] Status: Acute - Plan Plan: This is a 54 yo male with a pmh of HTN who is currently being treated for acute hypoxic respiratory failure 2/ COVID-19 Code: FULL Prophylaxis: pepcid, ppx lovenox Family: None at bedside per protocol Fluids: SL Diet: HH Lines/Tubes: 2 peripheral IVs Vent settings: Extubated 08/31 Disposition: DC in 4-5 days, pending clinical improvement. Pending COVID negative x2 in which should results tonight then inpt rehab, hopefully tomorrow. PCP: Dr. Ceballos ([facility]) Acute hypoxic respiratory failure 2/2 COVID-19 - s/p mechanical ventilation, extubated 08/31. Currently 2L [place] -Positive COVID-19 test at [facility], Intubated on 08/22 -Continue tapering steroids -Pulmonology following -Palliative care following Cardiomegaly on CXR -Trops/BNP negative -Strict I&Os Prolonged QTc -Resolved Hypokalemia -From GI losses -3.2, replace PO -Check Mg OLAMIDE, resolved Elevated lactate, resolved Tranaminitis/Leukocytosis -Minimal changes, likely 2/2 disease process Wound on his left cheek, likely from proning, will monitor 09/04 Plan: s/p cefepime course, now on omnicef & prednisone. he has received Tocilizumab on 08/23. Received convalescent plasma 08/29, Extubated on 08/31. Undergoing aggressive PT, negative COVID X1, repeat swab today. Pending inpt rehab with negative COVID x2. Replace potassium. Stool studies to r/o infectious colitis. No imodium for now. Discussed with Dr. Santos Addendum - Attending - Attending Attestation Date/Time: 09/05/19 1202 I personally evaluated the patient and discussed the management with Dr. Crowell. I agree with the History, Examination, Assessment and Plan documented above with any addition or exceptions noted below. Patient stable. Working on getting him to rehab. Repeat COVID testing x1 is negative. Discussion regarding the need for continue PPE use is ongoing and inconsistent with the hospital admin. Likely definitely dc isolation use when COVID x2 negative.
[2019-09-05] MEDS ORDERED: Potassium Chloride 20 MEQ TAB PO SCH (07:00)
[2019-09-05] MEDS: predniSONE 20 MG TAB PO SCH (08:39)
[2019-09-05] MEDS: Famotidine 20 MG TAB PO SCH ×2 (08:39→20:28)
[2019-09-05] MEDS: Cefdinir 300 MG CAP PO SCH ×2 (08:39→20:28)
[2019-09-05] MEDS: Amlodipine 10 MG TAB PO SCH (08:39)
[2019-09-05] MEDS: Enoxaparin Sodium 40 MG/0.4 ML SYRINGE SC SCH (08:39)
[2019-09-05] MEDS: Metamucil PACK PO SCH (08:40)
--- NOTE | 2019-09-05 09:34 | PRG ---
DATE OF SERVICE: 09/05/2019 SUBJECTIVE: A 54-year-old morbidly obese gentleman, who is doing better this morning. OBJECTIVE: VITAL SIGNS: Temperature 97, pulse 79, respirations 13, saturations are on nasal O2, and blood pressure . CHEST: No wheezing or crackles. CARDIAC: Normal S1 and S2. No gallops. LABORATORY DATA: Lytes are normal. His CBC is unremarkable. He had a repeat coronavirus test, which is negative to my surprise of yesterday. IMPRESSION: 1. Respiratory failure, acute respiratory distress syndrome, coronavirus positive. 2. Probably sleep apnea. 3. Obesity. PLAN: Repeat a chest x-ray. Discontinue probably antibiotics tomorrow including the steroids if x-ray looks much better. If his serology is negative tomorrow, he can probably be discharged to a [facility] with continued care. Job ID: [id number]
--- NOTE | 2019-09-05 11:40 | PDOC.EVN ---
Event Note - Event Note Event Note: COVID repeating testing was negative x1. Per housekeeping supervisor, PPE removal is physician decision so PPE precuations were removed. However after discussion with Dr. Elliott he would like to keep it on until the second COVID testing is negative. Discussed with Dr. Chavez who says COVID testing negative after positive is okay to remove PPE. Will further discuss with housekeeping supervisor in regards to consensus on policy for this. In meantime will keep precuations until second COVID results.
[2019-09-05 15:21] VITALS: BMI 48.0
[2019-09-05 17:59] LABS: SARS-CoV-2 MS2 Positive; SARS-CoV-2 N Gene Negative; SARS-CoV-2 S Gene Negative; SARS-CoV-2 orf1ab Negative
[2019-09-06] MEDS: Albuterol 200 PUFF (6.7GM INHALER) INH SCH ×3 (00:08→14:47)
[2019-09-06 04:58] LABS: Anion Gap 8 mmol/L (10-20); BUN (Urea Nitrogen) 16 mg/dL (8.4-25.7); Calc. Creatinine Clearance 270 mL/min (70-130); Calcium 8.4 mg/dL (7.8-10.44); Carbon Dioxide 27 mmol/L (22-29); Chloride 105 mmol/L (98-107); Estimated GFR-MDRD Greater than 90; Glucose 77 mg/dL (70-105); Potassium 3.4 mmol/L (3.5-5.1); Sodium 137 mmol/L (136-145)
--- NOTE | 2019-09-06 06:19 | PDOC.FM ---
- Subjective Subjective: Improved breathing. No complaints or concerns this morning. Getting stronger; able to take a couple of steps on own. Ready to go to inpatient rehab - Objective MAR Reviewed: Yes Vital Signs & Weight: Vital Signs (12 hours) Temp Pulse Resp BP Pulse Ox 09/06/19 03:05 97.6 F 84 20 129/76 95 09/05/19 20:23 98.7 F 79 18 122/66 90 L 09/05/19 20:00 98.7 F 79 18 122/66 32 L Weight Admit Weight 164.2 kg Weight 158.6 kg Most Recent Monitor Data Heart Rate from ECG 81 NIBP 151/94 NIBP BP-Mean 113 Respiration from ECG 16 SpO2 99 I&O: 09/04/19 09/05/19 09/06/19 06:59 06:59 06:59 Intake Total 1440 1810 900 Output Total 2540 2125 1600 Balance -1100 -315 -700 Result Diagrams: 09/03/19 03:00 09/06/19 04:16 Phys Exam - Physical Examination Constitutional: NAD HEENT: moist MMs Respiratory: no wheezing Cardiovascular: RRR, no significant murmur Gastrointestinal: soft, non-tender Musculoskeletal: no edema Psychiatric: normal affect Dx/Plan (1) COVID-19 virus infection Code(s): U07.1 - COVID-19 Status: Acute (2) HTN (hypertension) Code(s): I10 - ESSENTIAL (PRIMARY) HYPERTENSION Status: Acute (3) Hypokalemia Code(s): E87.6 - HYPOKALEMIA Status: Acute (4) Palliative care encounter Code(s): Z51.5 - ENCOUNTER FOR PALLIATIVE CARE Status: Acute (5) Prolonged Q-T interval on ECG Code(s): R94.31 - ABNORMAL ELECTROCARDIOGRAM [ECG] [EKG] Status: Acute - Plan Plan: This is a 54 yo male with a pmh of HTN who is currently being treated for acute hypoxic respiratory failure 2/2 COVID-19 Code: FULL Prophylaxis: pepcid, ppx lovenox Family: None at bedside per protocol Fluids: SL Diet: HH Vent settings: Extubated 08/31 Disposition: COVID negative x2, ready to d/c to inpt rehab from our standpoint, pending placement PCP: Dr. Ceballos ([facility]) Acute hypoxic respiratory failure 2/2 COVID-19 - s/p mechanical ventilation, extubated 08/31. Currently 2L [place] -Positive COVID-19 test at [facility], Intubated on 08/22 -Continue tapering steroids -Pulmonology following -Palliative care following Cardiomegaly on CXR -Trops/BNP negative -Strict I&Os Prolonged QTc -Resolved Hypokalemia -From GI losses -3.4, replace PO -Check Mg OLAMIDE, resolved Elevated lactate, resolved Tranaminitis/Leukocytosis -Minimal changes, likely 2/2 disease process Wound on his left cheek, likely from proning, will monitor 09/05 Plan: s/p cefepime course, now on omnicef & prednisone. he has received Tocilizumab on 08/23. Received convalescent plasma 08/29, Extubated on 08/31. Undergoing aggressive PT, negative COVID x2. Replace potassium. Pending inpatient rehab placement Discussed with Dr. Santos Addendum - Attending - Attending Attestation Date/Time: 09/06/19 1151 I personally evaluated the patient and discussed the management with Dr. Crowell. I agree with the History, Examination, Assessment and Plan documented above with any addition or exceptions noted below. Patient now COVID negative x2. Work on rehab placement. Doing well on room air now.
[2019-09-06] MEDS ORDERED: Potassium Chloride 20 MEQ TAB PO SCH (08:00)
--- NOTE | 2019-09-06 09:12 | PRG ---
DATE OF SERVICE: 09/06/2019 SUBJECTIVE: This morning, he is awake, alert, and responsive. He has 2 coronavirus serologies negative 24 hours. OBJECTIVE: VITAL SIGNS: Temperature 98, pulse 76, respiratory rate 16, saturations 98% on room air, blood pressure 125/76. CHEST: No wheezing or crackles. CARDIAC: Normal S1 and S2. No gallops. ABDOMEN: No masses. LABORATORY DATA: Unremarkable. IMPRESSION: 1. Status post respiratory failure, acute respiratory distress syndrome secondary to coronavirus infection. 2. Status post receiving plasma therapy with marked improvement in his overall status. 3. Severe deconditioning. 4. Probably sleep apnea. He can go to the rehab, discontinuing all his antibiotics. Probably, he needs an outpatient sleep study. He was told to contact the office when he is stable and is walking around. Job ID: [id number]
[2019-09-06] MEDS: predniSONE 20 MG TAB PO SCH (09:15)
[2019-09-06] MEDS: Famotidine 20 MG TAB PO SCH (09:22)
[2019-09-06] MEDS: Amlodipine 10 MG TAB PO SCH (09:22)
[2019-09-06] MEDS: Enoxaparin Sodium 40 MG/0.4 ML SYRINGE SC SCH (09:26)
[2019-09-06] MEDS: Metamucil PACK PO SCH (09:28)
--- NOTE | 2019-09-06 09:32 | RAD ---
Exam: Chest one view HISTORY:Pneumonia Comparison: 09/03/2019 FINDINGS: Cardiac silhouette: Normal Aorta: Unremarkable Pulmonary vessels: Normal Costophrenic angles: Clear LUNGS: Scattered interstitial and alveolar opacities. Stable right lateral pleural thickening. Pneumothorax: None Osseous abnormalities: None IMPRESSION: No significant interval change. Persistent interstitial and alveolar opacities along with right lateral pleural thickening.
[2019-09-06 15:48] VITALS: TEMP 98
[2019-09-06 16:26] VITALS: BP 107/72
--- NOTE | 2019-09-09 05:19 | PQF ---
ARA RANGEL JASON MD [id number] [id number] CLINICAL DOCUMENTATION CLARIFICATION FORM: POST DISCHARGE Addendum to original discharge summary date: ____ Late entry note date: __ DATE:09/09/2019 ATTN: Reynaldo Fu Please exercise your independent, professional judgment in responding to the clarification form. Clinical indicators are provided on the bottom of this form for your review Please check appropriate box(es): [ X] Sepsis due to: Covid 19 infection with Pneumonia [ ] Severe sepsis with acute organ dysfunction of: (Examples: respiratory failure, encephalopathy, acute kidney failure, other) [ ] Septic Shock [ ] Localized infection without sepsis [ ] Other diagnosis [ ] Unable to determine In addition, please specify: Present on Admission (POA): [ X ] Yes [ ] No [ ] Unable to determine For continuity of documentation, please document condition throughout progress notes and discharge summary. Thank You. CLINICAL INDICATORS - SIGNS / SYMPTOMS / LABS Laboratory 08/19 WBC 11.6, Plt count 258, Neutrophils 86.5, Band 3, Lactic acid 3.8 Blood culture 08/19 No growth in 5days Vital signs 08/19 BP 129/76, Pulse 113, Resp 44, Temp 101.3 ED notes p2 SIRS scoring- Yes pt did meet criteria H&P p1 08/19 Dr Farfan Presented with SOB, found he was Covid Positive H&P p1 08/19 Dr Naheed Vlaverde at home with Tmax of 101.3 H&P p3 08/19 Dr Farfan Acute Respiratory failure 2/2 Covid-19 H&P p3 08/19 Dr Farfan Classic lab abnormalities of leukocytosis, elevated neutrophils, decreased leukocytes, elevated ASR and creatinine H&P p3 08/19 Dr Farfan OLAMIDE vs CKD Consult PN p1 08/21 'Coronavirus positive, bilateral pneumonia PN p1 09/01 a little confused PN p3 08/31 lactic acidosis RISK FACTORS H&P p3 08/19- Covid Infection Consult p2 08/20 Bilateral bronchopneumonia Consult p2 08/20 Morbid Obesity TREATMENTS: Admitted to ICU JUL 09 Zithromycin 500mg oral JUL 09 IV NS 1L JUL 09 Plaquenil 200mg oral JUL 09 IV Cefepime 1gm JUL 09 IV Azithromycin 500mg JUL 09 IV Cefazolin 2gm Blood culture 08/19 Respiratory Panel 08/19 Oxygen 4L Respiratory Panel 08/22 Intubated on Mechanical ventilator Pulmonary Consult 08/20 Sukhjinder Hartman Chest X-ray 08/19 (This form is maintained as a part of the permanent medical record) 2014 [employer] All Rights Reserved [email or web address]
--- NOTE | 2019-09-09 14:02 | DIS ---
DATE OF ADMISSION: 08/20/2019 DATE OF DISCHARGE: 09/06/[address] Ramirez's transition of care note on 08/25/2019 for transition of care and hospitalization day 08/19 to 08/24. ADMITTING ATTENDING: Edgar Sorenson MD DISCHARGE ATTENDING: Reynaldo Santos MD RESIDENT: Shereen Crowell, PGY2 DISCHARGE MEDICATIONS: 1. Tylenol. 2. Albuterol sulfate two puffs inhaled q.6 hours p.r.n. for short of breath, wheezing. 3. Amlodipine 10 mg p.o. daily. 4. Famotidine 20 mg p.o. b.i.d. 5. Guaifenesin. 6. Psyllium. DISCONTINUED MEDICATIONS: None. HISTORY OF PRESENT ILLNESS/HOSPITAL COURSE: Mr. Washington Skaggs on 08/25/2019 was able to be successfully weaned off the ventilation to room air during his hospital stay. He continued to improve over the course of several days on steroids and antibiotics. He remained physically deconditioned and so was discharged to inpatient rehab after two negative COVID tests. DISPOSITION: Stable. DISCHARGE INSTRUCTIONS: 1. Location: Inpatient rehab. 2. Diet: Heart-healthy diet. 3. Activity: Ad-angela, as tolerated. 4. Followup. Please follow up with PCP upon discharge from rehab. Job ID: [id number] [id number]
== END 2019-09-06 19:52 | DRG 870 ==
LOC: ERS 17:01 → CCU 19:04 → 2SW 09-03 14:01
PROVIDERS: ADMIT Emergency Medicine; ATTEND Emergency Medicine
PROC: 8E0ZXY6 Isolation (ICD-10-PCS; 2019-08-20)
PROC: 5A1955Z Respiratory Ventilation, Greater than 96 Consecutive Hours (ICD-10-PCS; principal; 2019-08-23)
PROC: 0BH17EZ Insertion of Endotracheal Airway into Trachea, Via Natural or Artificial Opening (ICD-10-PCS; 2019-08-23)
PROC: 30233L1 Transfusion of Nonautologous Fresh Plasma into Peripheral Vein, Percutaneous Approach (ICD-10-PCS; 2019-08-30)
PROC: 30233K1 Transfusion of Nonautologous Frozen Plasma into Peripheral Vein, Percutaneous Approach (ICD-10-PCS; 2019-08-30)
DX: A41.89 Other specified sepsis (principal); U07.1 COVID-19; J12.89 Other viral pneumonia; J80 Acute respiratory distress syndrome; E87.2 Acidosis; N17.9 Acute kidney failure, unspecified; Z68.42 Body mass index [BMI] 45.0-49.9, adult; I45.81 Long QT syndrome; E87.6 Hypokalemia; I45.10 Unspecified right bundle-branch block; E66.01 Morbid (severe) obesity due to excess calories; G47.30 Sleep apnea, unspecified; I11.9 Hypertensive heart disease without heart failure; Z90.49 Acquired absence of other specified parts of digestive tract
CPT/HCPCS: 36415; 36430; 71045; 80048; 80053; 82728; 82805; 83036; 83540; 83550; 83605; 83615; 83735; 83880; 84100; 84145; 84484; 85007; 85025; 85027; 85060; 85379; 85520; 85610; 85730; 86140; 86850; 86900; 86901; 87040; 87324; 87449; 87635; 93005; 93010; 94002; 94003; 94640; 96361; 96365; 96366; 96368; J0360; J0456; J0690; J0692; J0696; J1650; J1940; J2060; J2704; J2920; J3010; J3262; J3475; J3480; J3490; J7050; J7512; J7611; S0020; S0028; U0003

== ENCOUNTER 2025-02-19 07:40 | Outpatient (CLI) | payer BC | END 2025-02-19 07:41 | disposition home or self-care (01) | LOC: SCSMRI 07:40 | PROVIDERS: ATTEND Neurological Surgery | DX: M54.12 Radiculopathy, cervical region (principal); M48.062 Spinal stenosis, lumbar region with neurogenic claudication; M48.02 Spinal stenosis, cervical region; M48.07 Spinal stenosis, lumbosacral region | CPT/HCPCS: 72141; 72148 ==